=== PATIENT | female | born 1935 | race Hispanic/Latino ===

== ENCOUNTER 2017-03-01 10:51 | Inpatient (IN) | payer MEDICARE ==
[2017-03-01] MEDS ORDERED: NACL 0.9% 1000 ML 1,000 ML IV ONE (11:44)
--- NOTE | 2017-03-01 12:34 | XRay Report ---
AP CHEST: HISTORY: Hypertension Right venous catheter has been removed since 11/08/14. There is mild bilateral perihilar prominence. This appears to represent chronic interstitial changes. No consolidation, pleural effusion or pneumothorax. Normal heart and mediastinal structures. IMPRESSION: No acute process. Mild chronic interstitial changes.
--- NOTE | 2017-03-01 12:35 | Cat Scan Report ---
CT HEAD WITHOUT CONTRAST: HISTORY: Altered mental status. TECHNIQUE: Sequential CT images without contrast. FINDINGS: Non-contrast CT of the head is submitted demonstrating central and cortical atrophy. There are low density changes in the periventricular white matter. Chronic lacunar infarcts in both basal ganglia are unchanged since 08/03/16. There is no intracranial hemorrhage or mass effect. There is no shift of the midline. Basilar cisterns are patent. The included portions of the paranasal sinuses and mastoid air cells are clear. IMPRESSION: Senescent changes as noted. No acute intracranial process.
[2017-03-01 12:49] LABS: Alanine Aminotransferase 13 units/L (7-56); Albumin 3.4 g/dL (3.9-5); Alkaline Phosphatase 110 units/L (35-129); Anion Gap 19 mmol/L; BUN/Creatinine Ratio 25.38; Basophils % (Auto) 0.5 % (0.0-1.8); Bilirubin,Total < 0.20 mg/dL (0.1-1.2); Blood Urea Nitrogen 33 mg/dL (7-17); Calcium 9.3 mg/dL (8.4-10.2); Carbon Dioxide 22 mmol/L (22-30); Chloride 98.7 mmol/L (98-107); Eosinophils % (Auto) 4.1 % (0.0-4.3); Glucose 126 mg/dL (65-100); Hemoglobin 11.3 gm/dl (10.1-14.3); Mean Corpuscular HGB Conc 33 % (30-34); Mean Corpuscular Hemoglobin 30 pg (28-32); Mean Corpuscular Volume 90 fl (79-97); Platelet Count 345 K/mm3 (140-440); Potassium 3.9 mmol/L (3.6-5.0); Red Blood Count 3.78 M/mm3 (3.65-5.03); Red Cell Distribution Width 14.4 % (13.2-15.2); Sodium 136 mmol/L (137-145); Total Protein 6.7 g/dL (6.3-8.2)
--- NOTE | 2017-03-01 13:54 | Emergency Department Report ---
ED Altered Mental Status HPI - General Chief Complaint: Altered Mental Status Stated Complaint: AMS Time Seen by Provider: 03/01/17 11:37 Source: EMS Mode of arrival: Stretcher Limitations: Physical Limitation - History of Present Illness Initial Comments: The patient is transported from the [facility] for evaluation of altered mental status. As far as I can tell there is no reported fever. This appears to be a failure to thrive situation where the patient stopped taking by mouth. The patient herself is able to respond reasonably well although she is lethargic. She no she is in the hospital. She can tell me that she is having no nausea vomiting diarrhea or difficulty in breathing headache or chest or abdominal pain. She states that she is unable to eat and drink and does feel weak. MD Complaint: altered mental status, decreased responsiveness Severity: moderate Context: other ([facility] resident poor by mouth intake) Associated Symptoms: denies other symptoms - Related Data Home Medications Medication Instructions Recorded Confirmed Last Taken Amiodarone HCl [Amiodarone 100 MG 200 mg PO BID 11/06/14 11/06/14 11/06/14 TAB] Aspirin [Aspirin BABY CHEW TAB] 81 mg PO QDAY 11/06/14 11/06/14 11/06/14 Calcium Carbonate [Calcium] 600 mg PO DAILY 11/06/14 11/06/14 11/06/14 Citalopram Hydrobromide [celeXA] 20 mg PO DAILY 11/06/14 11/06/14 11/06/14 Ferrous Sulfate [Feosol 325 MG tab] 325 mg PO ONCE 11/06/14 11/06/14 11/06/14 Gabapentin [Neurontin] 400 mg PO BID 11/06/14 11/06/14 11/06/14 Multivitamin [Multi-Vitamin Daily] 1 tab PO DAILY 11/06/14 11/06/14 11/06/14 Pravastatin Sodium [Pravastatin] 20 mg PO QHS 11/06/14 11/06/14 11/05/14 cloNIDine [Catapres] 0.1 mg PO TID 11/06/14 11/06/14 11/06/14 Previous Rx's Medication Instructions Recorded Last Taken Type clonazePAM 1 mg PO QDAY PRN #5 tablet 08/03/16 Unknown Rx Allergies Allergy/AdvReac Type Severity Reaction Status Date / Time iodine Allergy Unknown Verified 08/03/16 14:13 NSAIDS (Non-Steroidal Allergy Unknown Verified 08/03/16 14:13 Anti-Inflamma Sulfa (Sulfonamide Allergy Unknown Verified 08/03/16 14:13 Antibiotics) sulfamethoxazole Allergy Unknown Verified 10/29/14 10:19 [From Bactrim] trimethoprim [From Bactrim] Allergy Unknown Verified 10/29/14 10:19 ED Review of Systems ROS: Stated complaint: AMS Other details as noted in HPI Comment: Unobtainable due to pts medical conditions (Limited secondary to patient condition) ED Past Medical Hx - Past Medical History Hx Hypertension: Yes Hx GERD: Yes Hx Psychiatric Treatment: Yes (depression) Hx Dementia: Yes Hx HIV: No Additional medical history: a-fib - Surgical History Additional Surgical History: R hip fx repair in May - Social History Smoking Status: Unknown if ever smoked - Medications Home Medications: Home Medications Medication Instructions Recorded Confirmed Last Taken Type Amiodarone HCl [Amiodarone 100 MG 200 mg PO BID 11/06/14 11/06/14 11/06/14 History TAB] Aspirin [Aspirin BABY CHEW TAB] 81 mg PO QDAY 11/06/14 11/06/14 11/06/14 History Calcium Carbonate [Calcium] 600 mg PO DAILY 11/06/14 11/06/14 11/06/14 History Citalopram Hydrobromide [celeXA] 20 mg PO DAILY 11/06/14 11/06/14 11/06/14 History Ferrous Sulfate [Feosol 325 MG tab] 325 mg PO ONCE 11/06/14 11/06/14 11/06/14 History Gabapentin [Neurontin] 400 mg PO BID 11/06/14 11/06/14 11/06/14 History Multivitamin [Multi-Vitamin Daily] 1 tab PO DAILY 11/06/14 11/06/14 11/06/14 History Pravastatin Sodium [Pravastatin] 20 mg PO QHS 11/06/14 11/06/14 11/05/14 History cloNIDine [Catapres] 0.1 mg PO TID 11/06/14 11/06/14 11/06/14 History clonazePAM 1 mg PO QDAY PRN #5 tablet 08/03/16 Unknown Rx ED Physical Exam - General Limitations: Physical Limitation General appearance: alert, in no apparent distress - Head Head exam: Present: atraumatic, normocephalic - Eye Eye exam: Present: normal appearance, PERRL, EOMI. Absent: scleral icterus - ENT ENT exam: Present: mucous membranes dry - Neck Neck exam: Present: normal inspection. Absent: tenderness, meningismus - Respiratory Respiratory exam: Present: normal lung sounds bilaterally. Absent: respiratory distress - Cardiovascular Cardiovascular Exam: Present: regular rate, normal rhythm. Absent: systolic murmur, diastolic murmur, rubs, gallop - GI/Abdominal GI/Abdominal exam: Present: soft, normal bowel sounds. Absent: distended, tenderness, guarding, rebound, rigid - Extremities Exam Extremities exam: Present: normal inspection - Back Exam Back exam: Present: normal inspection - Neurological Exam Neurological exam: Present: altered, CN II-XII intact, other (no apparent focal deficit) - Psychiatric Psychiatric exam: Present: normal mood, flat affect - Skin Skin exam: Present: warm, dry, intact, normal color. Absent: rash - Assessment Assessment Interval: Baseline - Level of Consciousness 1a. Level of Consciousness: not alert, arousable (Stroke is not suspected.) - LOC Questions 1b. LOC Questions: answers correctly - LOC Command 1c. LOC Commands: performs tasks correctly - Best Gaze 2. Best Gaze: normal - Visual 3. Visual: no visual loss - Facial Palsy 4. Facial Palsy: normal symmetrical movement - Motor Arm 5b. Motor Arm Right: no drift 5a. Motor Arm Left: no drift - Motor Leg 6a. Motor Leg Left: no drift 6b. Motor Leg Right: no drift - Limb Ataxia 7. Limb Ataxia: absent - Sensory 8. Sensory: normal - Best Language 9. Best Language: no aphasia - Dysarthria 10. Dysarthria: normal - Extinction and Inattention 11. Extinction/Inattention: no abnormality - Scoring Total Score: 1 Stroke Severity: Minor Stroke ED Course Vital Signs 03/01/17 03/01/17 03/01/17 11:08 11:16 11:30 Temperature 98.0 F Pulse Rate 66 60 Respiratory 16 16 Rate Blood Pressure 104/66 Blood Pressure 104/44 [Right] O2 Sat by Pulse 97 96 96 Oximetry - Reevaluation(s) Reevaluation #1: Patient was started on IV fluids. She was given ceftriaxone empirically for antibiotic coverage. A urinalysis is Pending. EKG is Pending. Chest x-ray showed chronic interstitial disease but otherwise no acute process CT the head showed no acute intracranial abnormality. Patiently referred to the hospital service further care and evaluation. 03/01/17 14:03 Reevaluation #2: CK and troponin are still pending. Lab has been notified. 03/01/17 14:12 - Lab Data Result diagrams: 03/01/17 12:13 03/01/17 12:13 Lab Results 03/01/17 03/01/17 03/01/17 Range/Units 11:44 12:13 12:13 WBC 8.0 (4.5-11.0) K/mm3 RBC 3.78 (3.65-5.03) M/mm3 Hgb 11.3 (10.1-14.3) gm/dl Hct 34.0 (30.3-42.9) % MCV 90 (79-97) fl MCH 30 (28-32) pg MCHC 33 (30-34) % RDW 14.4 (13.2-15.2) % Plt Count 345 (140-440) K/mm3 Lymph % (Auto) 19.0 (13.4-35.0) % Liberty % (Auto) 7.2 (0.0-7.3) % Eos % (Auto) 4.1 (0.0-4.3) % Baso % (Auto) 0.5 (0.0-1.8) % Lymph # 1.5 (1.2-5.4) K/mm3 Liberty # 0.6 (0.0-0.8) K/mm3 Eos # 0.3 (0.0-0.4) K/mm3 Baso # 0.0 (0.0-0.1) K/mm3 Seg Neutrophils % 69.2 (40.0-70.0) % Seg Neutrophils # 5.5 (1.8-7.7) K/mm3 Sodium 136 L (137-145) mmol/L Potassium 3.9 (3.6-5.0) mmol/L Chloride 98.7 (98-107) mmol/L Carbon Dioxide 22 (22-30) mmol/L Anion Gap 19 mmol/L BUN 33 H (7-17) mg/dL Creatinine 1.3 H (0.7-1.2) mg/dL Estimated GFR 39 ml/min BUN/Creatinine Ratio 25.38 % Glucose 126 H (65-100) mg/dL Lactic Acid (0.7-2.0) mmol/L Calcium 9.3 (8.4-10.2) mg/dL Magnesium 2.00 (1.7-2.3) mg/dL Total Bilirubin < 0.20 (0.1-1.2) mg/dL AST 19 (5-40) units/L ALT 13 (7-56) units/L Alkaline Phosphatase 110 (35-129) units/L Total Creatine Kinase 27 L (30-135) units/L CK-MB (CK-2) 1.5 (0.0-4.0) ng/mL CK-MB (CK-2) Rel Index 5.5 H (0-4) Troponin T < 0.010 (0.00-0.029) ng/mL Total Protein 6.7 (6.3-8.2) g/dL Albumin 3.4 L (3.9-5) g/dL Albumin/Globulin Ratio 1.0 % TSH (0.270-4.200) mlU/mL Urine Color (Yellow) Urine Turbidity (Clear) Urine pH (5.0-7.0) Ur Specific Convoy (1.003-1.030) Urine Protein (Negative) mg/dL Urine Glucose (UA) (Negative) mg/dL Urine Ketones (Negative) mg/dL Urine Blood (Negative) Urine Nitrite (Negative) Urine Bilirubin (Negative) Urine Urobilinogen (<2.0) mg/dL Ur Leukocyte Esterase (Negative) Urine WBC (Auto) (0.0-6.0) /HPF Urine RBC (Auto) (0.0-6.0) /HPF U Epithel Cells (Auto) (0-13.0) /HPF Hyaline Casts /LPF Urine Mucus /HPF Salicylates (2.8-20.0) mg/dL Urine Opiates Screen Urine Methadone Screen Acetaminophen (10.0-30.0) ug/mL Ur Barbiturates Screen Ur Phencyclidine Scrn Ur Amphetamines Screen U Benzodiazepines Scrn Urine Cocaine Screen U Marijuana (THC) Screen Drugs of Abuse Note Plasma/Serum Alcohol (0-0.07) gm% 03/01/17 03/01/17 03/01/17 Range/Units 12:13 12:13 12:13 WBC (4.5-11.0) K/mm3 RBC (3.65-5.03) M/mm3 Hgb (10.1-14.3) gm/dl Hct (30.3-42.9) % MCV (79-97) fl MCH (28-32) pg MCHC (30-34) % RDW (13.2-15.2) % Plt Count (140-440) K/mm3 Lymph % (Auto) (13.4-35.0) % Liberty % (Auto) (0.0-7.3) % Eos % (Auto) (0.0-4.3) % Baso % (Auto) (0.0-1.8) % Lymph # (1.2-5.4) K/mm3 Liberty # (0.0-0.8) K/mm3 Eos # (0.0-0.4) K/mm3 Baso # (0.0-0.1) K/mm3 Seg Neutrophils % (40.0-70.0) % Seg Neutrophils # (1.8-7.7) K/mm3 Sodium (137-145) mmol/L Potassium (3.6-5.0) mmol/L Chloride (98-107) mmol/L Carbon Dioxide (22-30) mmol/L Anion Gap mmol/L BUN (7-17) mg/dL Creatinine (0.7-1.2) mg/dL Estimated GFR ml/min BUN/Creatinine Ratio % Glucose (65-100) mg/dL Lactic Acid 1.3 (0.7-2.0) mmol/L Calcium (8.4-10.2) mg/dL Magnesium (1.7-2.3) mg/dL Total Bilirubin (0.1-1.2) mg/dL AST (5-40) units/L ALT (7-56) units/L Alkaline Phosphatase (35-129) units/L Total Creatine Kinase (30-135) units/L CK-MB (CK-2) (0.0-4.0) ng/mL CK-MB (CK-2) Rel Index (0-4) Troponin T (0.00-0.029) ng/mL Total Protein (6.3-8.2) g/dL Albumin (3.9-5) g/dL Albumin/Globulin Ratio % TSH 1.660 (0.270-4.200) mlU/mL Urine Color (Yellow) Urine Turbidity (Clear) Urine pH (5.0-7.0) Ur Specific Convoy (1.003-1.030) Urine Protein (Negative) mg/dL Urine Glucose (UA) (Negative) mg/dL Urine Ketones (Negative) mg/dL Urine Blood (Negative) Urine Nitrite (Negative) Urine Bilirubin (Negative) Urine Urobilinogen (<2.0) mg/dL Ur Leukocyte Esterase (Negative) Urine WBC (Auto) (0.0-6.0) /HPF Urine RBC (Auto) (0.0-6.0) /HPF U Epithel Cells (Auto) (0-13.0) /HPF Hyaline Casts /LPF Urine Mucus /HPF Salicylates < 0.3 L (2.8-20.0) mg/dL Urine Opiates Screen Urine Methadone Screen Acetaminophen (10.0-30.0) ug/mL Ur Barbiturates Screen Ur Phencyclidine Scrn Ur Amphetamines Screen U Benzodiazepines Scrn Urine Cocaine Screen U Marijuana (THC) Screen Drugs of Abuse Note Plasma/Serum Alcohol (0-0.07) gm% 03/01/17 03/01/17 03/01/17 Range/Units 12:13 12:13 14:12 WBC (4.5-11.0) K/mm3 RBC (3.65-5.03) M/mm3 Hgb (10.1-14.3) gm/dl Hct (30.3-42.9) % MCV (79-97) fl MCH (28-32) pg MCHC (30-34) % RDW (13.2-15.2) % Plt Count (140-440) K/mm3 Lymph % (Auto) (13.4-35.0) % Liberty % (Auto) (0.0-7.3) % Eos % (Auto) (0.0-4.3) % Baso % (Auto) (0.0-1.8) % Lymph # (1.2-5.4) K/mm3 Liberty # (0.0-0.8) K/mm3 Eos # (0.0-0.4) K/mm3 Baso # (0.0-0.1) K/mm3 Seg Neutrophils % (40.0-70.0) % Seg Neutrophils # (1.8-7.7) K/mm3 Sodium (137-145) mmol/L Potassium (3.6-5.0) mmol/L Chloride (98-107) mmol/L Carbon Dioxide (22-30) mmol/L Anion Gap mmol/L BUN (7-17) mg/dL Creatinine (0.7-1.2) mg/dL Estimated GFR ml/min BUN/Creatinine Ratio % Glucose (65-100) mg/dL Lactic Acid 1.1 (0.7-2.0) mmol/L Calcium (8.4-10.2) mg/dL Magnesium (1.7-2.3) mg/dL Total Bilirubin (0.1-1.2) mg/dL AST (5-40) units/L ALT (7-56) units/L Alkaline Phosphatase (35-129) units/L Total Creatine Kinase (30-135) units/L CK-MB (CK-2) (0.0-4.0) ng/mL CK-MB (CK-2) Rel Index (0-4) Troponin T (0.00-0.029) ng/mL Total Protein (6.3-8.2) g/dL Albumin (3.9-5) g/dL Albumin/Globulin Ratio % TSH (0.270-4.200) mlU/mL Urine Color (Yellow) Urine Turbidity (Clear) Urine pH (5.0-7.0) Ur Specific Convoy (1.003-1.030) Urine Protein (Negative) mg/dL Urine Glucose (UA) (Negative) mg/dL Urine Ketones (Negative) mg/dL Urine Blood (Negative) Urine Nitrite (Negative) Urine Bilirubin (Negative) Urine Urobilinogen (<2.0) mg/dL Ur Leukocyte Esterase (Negative) Urine WBC (Auto) (0.0-6.0) /HPF Urine RBC (Auto) (0.0-6.0) /HPF U Epithel Cells (Auto) (0-13.0) /HPF Hyaline Casts /LPF Urine Mucus /HPF Salicylates (2.8-20.0) mg/dL Urine Opiates Screen Urine Methadone Screen Acetaminophen < 15.0 (10.0-30.0) ug/mL Ur Barbiturates Screen Ur Phencyclidine Scrn Ur Amphetamines Screen U Benzodiazepines Scrn Urine Cocaine Screen U Marijuana (THC) Screen Drugs of Abuse Note Plasma/Serum Alcohol < 0.01 (0-0.07) gm% 03/01/17 03/01/17 Range/Units 15:41 15:41 WBC (4.5-11.0) K/mm3 RBC (3.65-5.03) M/mm3 Hgb (10.1-14.3) gm/dl Hct (30.3-42.9) % MCV (79-97) fl MCH (28-32) pg MCHC (30-34) % RDW (13.2-15.2) % Plt Count (140-440) K/mm3 Lymph % (Auto) (13.4-35.0) % Liberty % (Auto) (0.0-7.3) % Eos % (Auto) (0.0-4.3) % Baso % (Auto) (0.0-1.8) % Lymph # (1.2-5.4) K/mm3 Liberty # (0.0-0.8) K/mm3 Eos # (0.0-0.4) K/mm3 Baso # (0.0-0.1) K/mm3 Seg Neutrophils % (40.0-70.0) % Seg Neutrophils # (1.8-7.7) K/mm3 Sodium (137-145) mmol/L Potassium (3.6-5.0) mmol/L Chloride (98-107) mmol/L Carbon Dioxide (22-30) mmol/L Anion Gap mmol/L BUN (7-17) mg/dL Creatinine (0.7-1.2) mg/dL Estimated GFR ml/min BUN/Creatinine Ratio % Glucose (65-100) mg/dL Lactic Acid (0.7-2.0) mmol/L Calcium (8.4-10.2) mg/dL Magnesium (1.7-2.3) mg/dL Total Bilirubin (0.1-1.2) mg/dL AST (5-40) units/L ALT (7-56) units/L Alkaline Phosphatase (35-129) units/L Total Creatine Kinase (30-135) units/L CK-MB (CK-2) (0.0-4.0) ng/mL CK-MB (CK-2) Rel Index (0-4) Troponin T (0.00-0.029) ng/mL Total Protein (6.3-8.2) g/dL Albumin (3.9-5) g/dL Albumin/Globulin Ratio % TSH (0.270-4.200) mlU/mL Urine Color Yellow (Yellow) Urine Turbidity Clear (Clear) Urine pH 5.0 (5.0-7.0) Ur Specific Convoy 1.018 (1.003-1.030) Urine Protein 100 mg/dl (Negative) mg/dL Urine Glucose (UA) Neg (Negative) mg/dL Urine Ketones Neg (Negative) mg/dL Urine Blood Neg (Negative) Urine Nitrite Neg (Negative) Urine Bilirubin Neg (Negative) Urine Urobilinogen < 2.0 (<2.0) mg/dL Ur Leukocyte Esterase Neg (Negative) Urine WBC (Auto) 2.0 (0.0-6.0) /HPF Urine RBC (Auto) 2.0 (0.0-6.0) /HPF U Epithel Cells (Auto) 2.0 (0-13.0) /HPF Hyaline Casts 1 /LPF Urine Mucus 2+ /HPF Salicylates (2.8-20.0) mg/dL Urine Opiates Screen Presumptive negative Urine Methadone Screen Presumptive negative Acetaminophen (10.0-30.0) ug/mL Ur Barbiturates Screen Presumptive negative Ur Phencyclidine Scrn Presumptive negative Ur Amphetamines Screen Presumptive negative U Benzodiazepines Scrn Presumptive negative Urine Cocaine Screen Presumptive negative U Marijuana (THC) Screen Presumptive negative Drugs of Abuse Note Disclamer Plasma/Serum Alcohol (0-0.07) gm% Laboratory Results - last 24 hr 03/01/17 03/01/17 03/01/17 12:13 12:13 12:13 WBC 8.0 RBC 3.78 Hgb 11.3 Hct 34.0 MCV 90 MCH 30 MCHC 33 RDW 14.4 Plt Count 345 Lymph % (Auto) 19.0 Liberty % (Auto) 7.2 Eos % (Auto) 4.1 Baso % (Auto) 0.5 Lymph # 1.5 Liberty # 0.6 Eos # 0.3 Baso # 0.0 Seg Neutrophils % 69.2 Seg Neutrophils # 5.5 Sodium 136 L Potassium 3.9 Chloride 98.7 Carbon Dioxide 22 Anion Gap 19 BUN 33 H Creatinine 1.3 H Estimated GFR 39 BUN/Creatinine Ratio 25.38 Glucose 126 H Lactic Acid 1.3 Calcium 9.3 Magnesium 2.00 Total Bilirubin < 0.20 AST 19 ALT 13 Alkaline Phosphatase 110 Total Protein 6.7 Albumin 3.4 L Albumin/Globulin Ratio 1.0 TSH Acetaminophen Plasma/Serum Alcohol 03/01/17 03/01/17 03/01/17 12:13 12:13 12:13 WBC RBC Hgb Hct MCV MCH MCHC RDW Plt Count Lymph % (Auto) Liberty % (Auto) Eos % (Auto) Baso % (Auto) Lymph # Liberty # Eos # Baso # Seg Neutrophils % Seg Neutrophils # Sodium Potassium Chloride Carbon Dioxide Anion Gap BUN Creatinine Estimated GFR BUN/Creatinine Ratio Glucose Lactic Acid Calcium Magnesium Total Bilirubin AST ALT Alkaline Phosphatase Total Protein Albumin Albumin/Globulin Ratio TSH 1.660 Acetaminophen < 15.0 Plasma/Serum Alcohol < 0.01 - EKG Data -: EKG Interpreted by Me EKG shows normal: sinus rhythm Rate: normal Interpretation: other (left bundle-branch block) - Radiology Data Radiology results: report reviewed interpreted by me: Chest x-ray shows chronic interstitial change. CT the head process. Critical care attestation.: If time is entered above; I have spent that time in minutes in the direct care of this critically ill patient, excluding procedure time. ED Disposition Clinical Impression: Prerenal azotemia, Left bundle branch block Altered mental status Qualifiers: Altered mental status type: somnolence Qualified Code(s): R40.0 - Somnolence Disposition: OP ADMITTED IP TO THIS HOSP Is pt being admited?: Yes Does the pt Need Aspirin: Yes Condition: Stable Referrals: PRIMARY CARE, [Primary Care Provider] - 3-5 Days Time of Disposition: 14:06
[2017-03-01] MEDS ORDERED: ROCEPHIN/NS 1 GM/50 ML 1 GM/50 ML BAG IV ONE (13:59)
--- NOTE | 2017-03-01 14:14 | History and Physical Report ---
History of Present Illness Chief complaint: confusion History of present illness: 81 YO Female NHR with HTN, GERD, A Fib, Depression, Dementia presents to ED for evaluation. Pt is unable to provide history. Pt history is taken from SNF staff , and ED staff. As per SNF staff, Pt has experienced decreased intake, and decreased level of consciousness. No reports of fever, chills, CP, Palpitations , NVD, Syncope, recent ill contacts. Past History Past Medical History: atrial fib, GERD, hypertension Past Surgical History: Other (Hip fracture repair) Social history: single. denies: smoking, alcohol abuse, prescription drug abuse Family history: no significant family history, other (reviewed) Medications and Allergies Allergies Allergy/AdvReac Type Severity Reaction Status Date / Time iodine Allergy Unknown Verified 08/03/16 14:13 NSAIDS (Non-Steroidal Allergy Unknown Verified 08/03/16 14:13 Anti-Inflamma Sulfa (Sulfonamide Allergy Unknown Verified 08/03/16 14:13 Antibiotics) sulfamethoxazole Allergy Unknown Verified 10/29/14 10:19 [From Bactrim] trimethoprim [From Bactrim] Allergy Unknown Verified 10/29/14 10:19 Home Medications Medication Instructions Recorded Confirmed Last Taken Type Amiodarone HCl [Amiodarone 100 MG 200 mg PO BID 11/06/14 11/06/14 11/06/14 History TAB] Aspirin [Aspirin BABY CHEW TAB] 81 mg PO QDAY 11/06/14 11/06/14 11/06/14 History Calcium Carbonate [Calcium] 600 mg PO DAILY 11/06/14 11/06/14 11/06/14 History Citalopram Hydrobromide [celeXA] 20 mg PO DAILY 11/06/14 11/06/14 11/06/14 History Ferrous Sulfate [Feosol 325 MG tab] 325 mg PO ONCE 11/06/14 11/06/14 11/06/14 History Gabapentin [Neurontin] 400 mg PO BID 11/06/14 11/06/14 11/06/14 History Multivitamin [Multi-Vitamin Daily] 1 tab PO DAILY 11/06/14 11/06/14 11/06/14 History Pravastatin Sodium [Pravastatin] 20 mg PO QHS 11/06/14 11/06/14 11/05/14 History cloNIDine [Catapres] 0.1 mg PO TID 11/06/14 11/06/14 11/06/14 History clonazePAM 1 mg PO QDAY PRN #5 tablet 08/03/16 Unknown Rx Active Meds: Active Medications Sodium Chloride (Nacl 0.9% 1000 Ml) 1,000 mls @ 250 mls/hr IV ONCE ONE Stop: 03/01/17 15:43 Ceftriaxone Sodium (Rocephin/Ns 1 Gm/50 Ml) 1 gm in 50 mls @ 100 mls/hr IV ONCE ONE PRN Reason: Protocol Stop: 03/01/17 14:28 Review of Systems ROS unobtainable: due to mental status Exam - Constitutional Vitals: Temp Pulse Resp BP Pulse Ox 98.0 F 60 16 104/44 96 03/01/17 11:30 03/01/17 11:30 03/01/17 11:30 03/01/17 11:30 03/01/17 11:30 General appearance: Present: no acute distress - EENT Eyes: Present: PERRL ENT: hearing intact, clear oral mucosa - Neck Neck: Present: supple - Respiratory Respiratory: bilateral: diminished - Cardiovascular Rhythm: irregularly irregular - Extremities Extremities: pulses symmetrical, No edema - Abdominal General gastrointestinal: Present: soft, non-tender, non-distended, normal bowel sounds Female genitourinary: Present: normal - Integumentary Integumentary: Present: clear, dry, decreased turgor - Musculoskeletal Musculoskeletal: generalized weakness - Psychiatric Psychiatric: no intact judgment & insight, no memory intact - Neurologic Neurologic: moves all extremities, no gait normal Results - Labs CBC & Chem 7: 03/01/17 12:13 03/01/17 12:13 Labs: Abnormal lab results 03/01/17 Range/Units 12:13 Sodium 136 L (137-145) mmol/L BUN 33 H (7-17) mg/dL Creatinine 1.3 H (0.7-1.2) mg/dL Glucose 126 H (65-100) mg/dL Albumin 3.4 L (3.9-5) g/dL Assessment and Plan - Patient Problems (1) ARF (acute renal failure) with tubular necrosis Current Visit: Yes Status: Acute Plan to address problem: IVF, supportive care, monitor uop q shift (2) Hyponatremia syndrome Current Visit: Yes Status: Acute Plan to address problem: IVF, supportive care, repeat bmp, (3) Encephalopathy acute Current Visit: Yes Status: Acute Plan to address problem: supportive care, bed alarm, fall precautions, (4) Debility Current Visit: Yes Status: Acute Plan to address problem: bed alarm, fall precautions, (5) Atrial fibrillation Current Visit: Yes Status: Acute Qualifiers: Atrial fibrillation type: A Plan to address problem: continue current care, resume home medication. (6) DVT prophylaxis Current Visit: Yes Status: Acute
[2017-03-01] MEDS ORDERED: TYLENOL PO PRN (14:16)
[2017-03-01] MEDS ORDERED: DULCOLAX PR PRN (14:16)
[2017-03-01] MEDS ORDERED: DUONEB 0.5 MG-3 MG/3 ML SOLN IH PRN (14:16)
[2017-03-01] MEDS ORDERED: ZOFRAN IV PRN (14:16)
[2017-03-01] MEDS ORDERED: MILK OF MAGNESIA PO PRN (14:16)
[2017-03-01 14:49] LABS: Creatine Kinase MB 1.5 ng/mL (0.0-4.0)
[2017-03-01 14:50] LABS: Creatine Kinase 27 units/L (30-135)
[2017-03-01] MEDS ORDERED: FEOSOL PO SCH (15:00)
[2017-03-01 15:49] LABS: Urine Drugs of Abuse Note Disclamer
[2017-03-01 16:17] LABS: Bilirubin,Urine NEG (Negative); Blood,Urine NEG (Negative); Ketones,Urine NEG (Negative); Leukocyte Esterase,Urine NEG (Negative); Mucus,Urine 2+ /HPF; Nitrite,Urine NEG (Negative); Urobilinogen,Urine < 2.0 mg/dL (<2.0)
--- NOTE | 2017-03-01 16:30 | Admit Criteria Form ---
Admission Criteria Documentation: MENTAL STATUS CHANGE Clinical Indications for Inpatient Care (Place 'X' for any and all applicable criteria): Ongoing inpatient care may be needed for 1 or more of the following(1)(2)(3)(5)( 6): [ X]I. Suspected serious etiology (eg, medical disorder, SQUAD BOSS event) of altered mental status [ ]II. Danger to self or others not manageable at lower level of care [ ]III. Grave disability (eg, inability to perform self care necessary at lower level of care) [ ]IV. Agitation or inappropriate behavior interfering with care for primary condition (eg, attempting to discontinue lines or drains prematurely, unable to cooperate with respiratory care) [ ]V. Delirium [A] [D][E] as described by 1 or more of the following(26): [ ]a) Delirium due to alcohol or sedative [F] withdrawal [ ]b) Delirium of uncertain etiology that has not responded to appropriate empiric treatment [ ]c) Delirium that prevents performance of a life-sustaining function (eg, feeding or hydrating oneself) [ ]. General contraindications and/or Inappropriate clinical situations for Observational Care in patients with Mental Status Change, when ANY ONE of the following is required: [ ]a) Prediction of prolongation of LOS based on ANY ONE of the following may be considered as a contraindication for observational care 2, 3, 4, 5, 6, 7, 8, 9, 10, 11 [ ]i) Age > 65 yrs. [ ]ii) Patient arriving by ambulance [ ]iii) Patient with high acuity [ ]iv) Patient requiring vital sign monitoring [ ]v) Patient on IV medication [ ]b) Systolic blood pressures greater than or equal to 180mmHg 3, 12 [ ]c) Patient with altered mental status including delirium and other alteration of consciousness, (3) [ ]d) Patient whose discharge disposition will be to a assisted home or rehabilitation home should not be managed in Emergency Department Observation Unit. CMS rule requires 3 days hospital stay before such placement.3,13 [ ]e) Patient with failure to thrive due to broad array of etiologies 3,16,17 [ ]f) Inability to ambulate 3,14 Extended stay beyond goal length of stay for the primary condition may be needed until ALL of the following are present(3)(5): [ ]a) Underlying medical etiology of mental status change is absent, or has been established and adequately treated [ ]b) Danger to self or others is absent or manageable at lower level of care. [ ]c) Behavior crisis management, including physical or chemical restraints, is not required or available at lower level of car [ ]d) Substance or alcohol withdrawal is absent or manageable at lower level of care. [ ]e) Behavioral symptoms (eg, agitation, somnolence, inappropriate behavior) are absent, or are manageable at lower level of care. The original [facility] content created by [facility] has been revised. The portions of the content which have been revised are identified through the use of italic text or in bold, and [facility] has neither reviewed nor approved the modified material. All other unmodified content is copyright [facility] [employer]. Please see references footnoted in the original [facility] edition 2016 Admission Criteria Met: Yes
[2017-03-01] MEDS: CATAPRES PO SCH (20:00)
[2017-03-01] MEDS: CORDARONE PO SCH (22:00)
[2017-03-01] MEDS: NEURONTIN PO SCH (22:00)
[2017-03-01] MEDS ORDERED: NON-FORMULARY (Pravastatin Sodium [Pravastatin] 20 MG) PO SCH (22:00)
[2017-03-01] MEDS: ZOCOR PO SCH (22:00)
[2017-03-02] MEDS: NACL 0.45% 1000 ML 1,000 ML IV SCH (01:14)
[2017-03-02] MEDS: CATAPRES PO SCH ×3 (08:32→21:48)
[2017-03-02] MEDS: celeXA PO SCH (10:00)
[2017-03-02] MEDS: NEURONTIN PO SCH ×2 (10:00→21:47)
[2017-03-02] MEDS ORDERED: NON-FORMULARY (Multivitamin [Multi-Vitamin Daily] 1 TAB) PO SCH (10:00)
[2017-03-02] MEDS: OSCAL PO SCH (10:00)
[2017-03-02] MEDS: THERAGRAN-M Tab PO SCH (10:00)
[2017-03-02] MEDS: BABY ASPIRIN PO SCH (10:00)
[2017-03-02] MEDS: CORDARONE PO SCH ×2 (10:00→21:48)
--- NOTE | 2017-03-02 17:09 | Progress Note ---
Assessment and Plan Assessment and plan: 1. Acute toxic metabolic encephalopathy Likely secondary to electrolyte abnormalities/uremia superimposed on dementia Infection ruled out Treating underlying conditions 2. Acute renal failure Likely secondary to dehydration with subsequent vasomotor nephropathy IV fluids Monitor BUN/creatinine and electrolytes 3. Hyponatremia Mild, monitor 4. Atrial fibrillation Rate controlled with amiodarone Not on anticoagulation Likely secondary to mental impairment and risk of falls 5. Hypertension On clonidine Monitor BP and adjust if needed 6. Hyperlipidemia On statin 7. Depression/dementia Continue Celexa, Klonopin Supportive care 8. Malnutrition Likely secondary to dementia and poor intake 9. DVT prophylaxis History Interval history: awake, alert, talkative, but confused, not oriented Hospitalist Physical - Constitutional Vitals: Temp Pulse Resp BP Pulse Ox 97.8 F 80 20 142/70 97 03/02/17 10:00 03/02/17 14:58 03/02/17 10:00 03/02/17 14:58 03/02/17 10:00 General appearance: Present: no acute distress, well-nourished - EENT Eyes: Present: PERRL, EOM intact. Absent: scleral icterus, conjunctival injection - Neck Neck: Present: supple, normal ROM. Absent: masses or JVD - Respiratory Respiratory effort: normal Respiratory: bilateral: CTA, negative: rales, rhonchi, wheezing - Cardiovascular Rhythm: irregularly irregular Heart Sounds: Present: S1 & S2. Absent: systolic murmur - Extremities Extremities: no ischemia Results - Labs CBC & Chem 7: 03/01/17 12:13 03/01/17 12:13 Labs: Laboratory Last Values WBC 8.0 K/mm3 (4.5-11.0) 03/01/17 12:13 RBC 3.78 M/mm3 (3.65-5.03) 03/01/17 12:13 Hgb 11.3 gm/dl (10.1-14.3) 03/01/17 12:13 Hct 34.0 % (30.3-42.9) 03/01/17 12:13 MCV 90 fl (79-97) 03/01/17 12:13 MCH 30 pg (28-32) 03/01/17 12:13 MCHC 33 % (30-34) 03/01/17 12:13 RDW 14.4 % (13.2-15.2) 03/01/17 12:13 Plt Count 345 K/mm3 (140-440) 03/01/17 12:13 Lymph % (Auto) 19.0 % (13.4-35.0) 03/01/17 12:13 [place] % (Auto) 7.2 % (0.0-7.3) 03/01/17 12:13 Eos % (Auto) 4.1 % (0.0-4.3) 03/01/17 12:13 Baso % (Auto) 0.5 % (0.0-1.8) 03/01/17 12:13 Lymph # 1.5 K/mm3 (1.2-5.4) 03/01/17 12:13 [place] # 0.6 K/mm3 (0.0-0.8) 03/01/17 12:13 Eos # 0.3 K/mm3 (0.0-0.4) 03/01/17 12:13 Baso # 0.0 K/mm3 (0.0-0.1) 03/01/17 12:13 Seg Neutrophils % 69.2 % (40.0-70.0) 03/01/17 12:13 Seg Neutrophils # 5.5 K/mm3 (1.8-7.7) 03/01/17 12:13 Sodium 136 mmol/L (137-145) L 03/01/17 12:13 Potassium 3.9 mmol/L (3.6-5.0) 03/01/17 12:13 Chloride 98.7 mmol/L (98-107) 03/01/17 12:13 Carbon Dioxide 22 mmol/L (22-30) 03/01/17 12:13 Anion Gap 19 mmol/L 03/01/17 12:13 BUN 33 mg/dL (7-17) H 03/01/17 12:13 Creatinine 1.3 mg/dL (0.7-1.2) H 03/01/17 12:13 Estimated GFR 39 ml/min 03/01/17 12:13 BUN/Creatinine Ratio 25.38 % 03/01/17 12:13 Glucose 126 mg/dL (65-100) H 03/01/17 12:13 Lactic Acid 1.1 mmol/L (0.7-2.0) 03/01/17 14:12 Calcium 9.3 mg/dL (8.4-10.2) 03/01/17 12:13 Magnesium 2.00 mg/dL (1.7-2.3) 03/01/17 12:13 Total Bilirubin < 0.20 mg/dL (0.1-1.2) 03/01/17 12:13 AST 19 units/L (5-40) 03/01/17 12:13 ALT 13 units/L (7-56) 03/01/17 12:13 Alkaline Phosphatase 110 units/L (35-129) 03/01/17 12:13 Total Creatine Kinase 27 units/L (30-135) L 03/01/17 11:44 CK-MB (CK-2) 1.5 ng/mL (0.0-4.0) 03/01/17 11:44 CK-MB (CK-2) Rel Index 5.5 (0-4) H 03/01/17 11:44 Troponin T < 0.010 ng/mL (0.00-0.029) 03/01/17 11:44 Total Protein 6.7 g/dL (6.3-8.2) 03/01/17 12:13 Albumin 3.4 g/dL (3.9-5) L 03/01/17 12:13 Albumin/Globulin Ratio 1.0 % 03/01/17 12:13 TSH 1.660 mlU/mL (0.270-4.200) 03/01/17 12:13 Urine Color Yellow (Yellow) 03/01/17 15:41 Urine Turbidity Clear (Clear) 03/01/17 15:41 Urine pH 5.0 (5.0-7.0) 03/01/17 15:41 Ur Specific [place] 1.018 (1.003-1.030) 03/01/17 15:41 Urine Protein 100 mg/dl mg/dL (Negative) 03/01/17 15:41 Urine Glucose (UA) Neg mg/dL (Negative) 03/01/17 15:41 Urine Ketones Neg mg/dL (Negative) 03/01/17 15:41 Urine Blood Neg (Negative) 03/01/17 15:41 Urine Nitrite Neg (Negative) 03/01/17 15:41 Urine Bilirubin Neg (Negative) 03/01/17 15:41 Urine Urobilinogen < 2.0 mg/dL (<2.0) 03/01/17 15:41 Ur Leukocyte Esterase Neg (Negative) 03/01/17 15:41 Urine WBC (Auto) 2.0 /HPF (0.0-6.0) 03/01/17 15:41 Urine RBC (Auto) 2.0 /HPF (0.0-6.0) 03/01/17 15:41 U Epithel Cells (Auto) 2.0 /HPF (0-13.0) 03/01/17 15:41 Hyaline Casts 1 /LPF 03/01/17 15:41 Urine Mucus 2+ /HPF 03/01/17 15:41 Salicylates < 0.3 mg/dL (2.8-20.0) L 03/01/17 12:13 Urine Opiates Screen Presumptive negative 03/01/17 15:41 Urine Methadone Screen Presumptive negative 03/01/17 15:41 Acetaminophen < 15.0 ug/mL (10.0-30.0) 03/01/17 12:13 Ur Barbiturates Screen Presumptive negative 03/01/17 15:41 Ur Phencyclidine Scrn Presumptive negative 03/01/17 15:41 Ur Amphetamines Screen Presumptive negative 03/01/17 15:41 U Benzodiazepines Scrn Presumptive negative 03/01/17 15:41 Urine Cocaine Screen Presumptive negative 03/01/17 15:41 U Marijuana (THC) Screen Presumptive negative 03/01/17 15:41 Drugs of Abuse Note Disclamer 03/01/17 15:41 Plasma/Serum Alcohol < 0.01 gm% (0-0.07) 03/01/17 12:13
[2017-03-02] MEDS: ZOCOR PO SCH (21:47)
[2017-03-03] MEDS: NACL 0.45% 1000 ML 1,000 ML IV SCH (06:43)
[2017-03-03] MEDS: CATAPRES PO SCH ×3 (08:17→20:00)
[2017-03-03] MEDS: celeXA PO SCH (10:09)
[2017-03-03] MEDS: NEURONTIN PO SCH ×2 (10:10→21:54)
[2017-03-03] MEDS: THERAGRAN-M Tab PO SCH (10:10)
[2017-03-03] MEDS: OSCAL PO SCH (10:10)
[2017-03-03] MEDS: CORDARONE PO SCH ×2 (10:10→21:55)
[2017-03-03] MEDS: BABY ASPIRIN PO SCH (10:10)
--- NOTE | 2017-03-03 19:50 | Progress Note ---
Assessment and Plan Assessment and plan: 1. Acute toxic metabolic encephalopathy Likely secondary to electrolyte abnormalities/uremia superimposed on dementia Infection ruled out Treating underlying conditions 2. Acute renal failure Likely secondary to dehydration with subsequent vasomotor nephropathy Receiving IV fluids Monitor BUN/creatinine and electrolytes 3. Hyponatremia Mild, monitor 4. Atrial fibrillation Rate controlled with amiodarone Not on anticoagulation Likely secondary to mental impairment and risk of falls 5. Hypertension BP controlled on clonidine 6. Hyperlipidemia On statin 7. Depression/dementia Continue Celexa, Klonopin Supportive care 8. Malnutrition Likely secondary to dementia and poor intake 9. DVT prophylaxis History Interval history: awake, alert, talkative, but confused, mental status slightly better than yesterday Hospitalist Physical - Constitutional Vitals: Temp Pulse Resp BP Pulse Ox 99.4 F 60 18 133/56 97 03/03/17 10:00 03/03/17 14:11 03/03/17 10:00 03/03/17 14:11 03/03/17 10:00 General appearance: Present: no acute distress - EENT Eyes: Present: PERRL, EOM intact. Absent: scleral icterus, conjunctival injection - Neck Neck: Present: supple. Absent: enlarged thyroid, masses or JVD - Respiratory Respiratory effort: normal Respiratory: bilateral: CTA, negative: rhonchi, wheezing - Cardiovascular Rhythm: regular Heart Sounds: Present: S1 & S2. Absent: systolic murmur - Extremities Extremities: no ischemia - Abdominal General gastrointestinal: soft, non-tender, non-distended, normal bowel sounds - Integumentary Integumentary: Present: warm, dry. Absent: jaundice, rash - Psychiatric Psychiatric: other (confused) - Neurologic Neurologic: CNII-XII intact, no focal deficits Results - Labs CBC & Chem 7: 03/01/17 12:13 03/01/17 12:13 Labs: Laboratory Last Values WBC 8.0 K/mm3 (4.5-11.0) 03/01/17 12:13 RBC 3.78 M/mm3 (3.65-5.03) 03/01/17 12:13 Hgb 11.3 gm/dl (10.1-14.3) 03/01/17 12:13 Hct 34.0 % (30.3-42.9) 03/01/17 12:13 MCV 90 fl (79-97) 03/01/17 12:13 MCH 30 pg (28-32) 03/01/17 12:13 MCHC 33 % (30-34) 03/01/17 12:13 RDW 14.4 % (13.2-15.2) 03/01/17 12:13 Plt Count 345 K/mm3 (140-440) 03/01/17 12:13 Lymph % (Auto) 19.0 % (13.4-35.0) 03/01/17 12:13 [place] % (Auto) 7.2 % (0.0-7.3) 03/01/17 12:13 Eos % (Auto) 4.1 % (0.0-4.3) 03/01/17 12:13 Baso % (Auto) 0.5 % (0.0-1.8) 03/01/17 12:13 Lymph # 1.5 K/mm3 (1.2-5.4) 03/01/17 12:13 [place] # 0.6 K/mm3 (0.0-0.8) 03/01/17 12:13 Eos # 0.3 K/mm3 (0.0-0.4) 03/01/17 12:13 Baso # 0.0 K/mm3 (0.0-0.1) 03/01/17 12:13 Seg Neutrophils % 69.2 % (40.0-70.0) 03/01/17 12:13 Seg Neutrophils # 5.5 K/mm3 (1.8-7.7) 03/01/17 12:13 Sodium 136 mmol/L (137-145) L 03/01/17 12:13 Potassium 3.9 mmol/L (3.6-5.0) 03/01/17 12:13 Chloride 98.7 mmol/L (98-107) 03/01/17 12:13 Carbon Dioxide 22 mmol/L (22-30) 03/01/17 12:13 Anion Gap 19 mmol/L 03/01/17 12:13 BUN 33 mg/dL (7-17) H 03/01/17 12:13 Creatinine 1.3 mg/dL (0.7-1.2) H 03/01/17 12:13 Estimated GFR 39 ml/min 03/01/17 12:13 BUN/Creatinine Ratio 25.38 % 03/01/17 12:13 Glucose 126 mg/dL (65-100) H 03/01/17 12:13 Lactic Acid 1.1 mmol/L (0.7-2.0) 03/01/17 14:12 Calcium 9.3 mg/dL (8.4-10.2) 03/01/17 12:13 Magnesium 2.00 mg/dL (1.7-2.3) 03/01/17 12:13 Total Bilirubin < 0.20 mg/dL (0.1-1.2) 03/01/17 12:13 AST 19 units/L (5-40) 03/01/17 12:13 ALT 13 units/L (7-56) 03/01/17 12:13 Alkaline Phosphatase 110 units/L (35-129) 03/01/17 12:13 Total Creatine Kinase 27 units/L (30-135) L 03/01/17 11:44 CK-MB (CK-2) 1.5 ng/mL (0.0-4.0) 03/01/17 11:44 CK-MB (CK-2) Rel Index 5.5 (0-4) H 03/01/17 11:44 Troponin T < 0.010 ng/mL (0.00-0.029) 03/01/17 11:44 Total Protein 6.7 g/dL (6.3-8.2) 03/01/17 12:13 Albumin 3.4 g/dL (3.9-5) L 03/01/17 12:13 Albumin/Globulin Ratio 1.0 % 03/01/17 12:13 TSH 1.660 mlU/mL (0.270-4.200) 03/01/17 12:13 Urine Color Yellow (Yellow) 03/01/17 15:41 Urine Turbidity Clear (Clear) 03/01/17 15:41 Urine pH 5.0 (5.0-7.0) 03/01/17 15:41 Ur Specific [place] 1.018 (1.003-1.030) 03/01/17 15:41 Urine Protein 100 mg/dl mg/dL (Negative) 03/01/17 15:41 Urine Glucose (UA) Neg mg/dL (Negative) 03/01/17 15:41 Urine Ketones Neg mg/dL (Negative) 03/01/17 15:41 Urine Blood Neg (Negative) 03/01/17 15:41 Urine Nitrite Neg (Negative) 03/01/17 15:41 Urine Bilirubin Neg (Negative) 03/01/17 15:41 Urine Urobilinogen < 2.0 mg/dL (<2.0) 03/01/17 15:41 Ur Leukocyte Esterase Neg (Negative) 03/01/17 15:41 Urine WBC (Auto) 2.0 /HPF (0.0-6.0) 03/01/17 15:41 Urine RBC (Auto) 2.0 /HPF (0.0-6.0) 03/01/17 15:41 U Epithel Cells (Auto) 2.0 /HPF (0-13.0) 03/01/17 15:41 Hyaline Casts 1 /LPF 03/01/17 15:41 Urine Mucus 2+ /HPF 03/01/17 15:41 Salicylates < 0.3 mg/dL (2.8-20.0) L 03/01/17 12:13 Urine Opiates Screen Presumptive negative 03/01/17 15:41 Urine Methadone Screen Presumptive negative 03/01/17 15:41 Acetaminophen < 15.0 ug/mL (10.0-30.0) 03/01/17 12:13 Ur Barbiturates Screen Presumptive negative 03/01/17 15:41 Ur Phencyclidine Scrn Presumptive negative 03/01/17 15:41 Ur Amphetamines Screen Presumptive negative 03/01/17 15:41 U Benzodiazepines Scrn Presumptive negative 03/01/17 15:41 Urine Cocaine Screen Presumptive negative 03/01/17 15:41 U Marijuana (THC) Screen Presumptive negative 03/01/17 15:41 Drugs of Abuse Note Disclamer 03/01/17 15:41 Plasma/Serum Alcohol < 0.01 gm% (0-0.07) 03/01/17 12:13
[2017-03-03] MEDS: ZOCOR PO SCH (21:54)
[2017-03-04 06:02] LABS: Blood Urea Nitrogen 11 mg/dL (7-17); Calcium 8.6 mg/dL (8.4-10.2); Carbon Dioxide 18 mmol/L (22-30); Chloride 101.3 mmol/L (98-107); Glucose 96 mg/dL (65-100); Sodium 133 mmol/L (137-145)
[2017-03-04 06:54] LABS: Anion Gap 18 mmol/L; Potassium 4.2 mmol/L (3.6-5.0)
--- NOTE | 2017-03-04 08:32 | Discharge Summary ---
Providers - Providers Date of Admission: 03/01/17 17:51 Date of discharge: 03/04/17 Attending physician: NICOLLE DE LA CRUZ 03/03/17 09:21 Consult to Dietitian/Nutrition [CONS] Routine Physician Instructions: Reason For Exam: Reason for Consult: Skin Risk per Prasanna Scale Primary care physician: [employer] Hospitalization Reason for admission: decreased level of consciousness Condition: Stable Pertinent studies: CXR CT head Hospital course: Patient is a 81 years old female, intermediate resident, with A. fib, hypertension, hyperlipidemia, dementia, was brought to the hospital for decreased level of consciousness and decreased by mouth intake. His diagnosed with acute renal failure and electrolyte abnormalities secondary to dehydration and with subsequent toxic metabolic encephalopathy superimposed on her dementia. She received IV fluids and electrolytes normalities have been treated accordingly. She is discharged back to intermediate in stable condition. Discharge diagnosis: 1. Acute toxic metabolic encephalopathy 2. Acute renal failure 3. Hyponatremia 4. Atrial fibrillation 5. Hypertension 6. Hyperlipidemia 7. Depression/dementia 8. Malnutrition Disposition: DC/[place] SNF [facility] Time spent for discharge: 35 min Core Measure Documentation - Palliative Care Palliative Care/ Comfort Measures: Not Applicable - Core Measures Any of the following diagnoses?: none Exam - Physical Exam Narrative exam: Patient seen and examined: - Constitutional Vitals: Temp Pulse Resp BP Pulse Ox 98.8 F 56 L 18 139/59 95 03/04/17 05:47 03/04/17 05:47 03/04/17 05:47 03/04/17 05:47 03/04/17 08:12 General appearance: Present: no acute distress - EENT Eyes: Present: PERRL, EOM intact. Absent: scleral icterus, conjunctival injection - Neck Neck: Present: supple, normal ROM. Absent: masses or JVD - Respiratory Respiratory effort: normal Respiratory: negative: rales, rhonchi - Cardiovascular Rhythm: irregularly irregular Heart Sounds: Present: S1 & S2. Absent: systolic murmur - Extremities Extremities: no ischemia - Abdominal General gastrointestinal: Present: soft, non-tender, non-distended, normal bowel sounds - Psychiatric Psychiatric: no intact judgment & insight, no memory intact, other (not oriented ) - Neurologic Neurologic: moves all extremities Plan Activity: advance as tolerated, fall precautions Diet: low cholesterol, low salt Follow up with: PRIMARY CARE, [Primary Care Provider] - 3-5 Days
[2017-03-04] MEDS: OSCAL PO SCH (10:11)
[2017-03-04] MEDS: BABY ASPIRIN PO SCH (10:12)
[2017-03-04] MEDS: CORDARONE PO SCH (10:12)
[2017-03-04] MEDS: NEURONTIN PO SCH (10:13)
[2017-03-04] MEDS: THERAGRAN-M Tab PO SCH (10:13)
[2017-03-04] MEDS: celeXA PO SCH (10:13)
[2017-03-04] MEDS: CATAPRES PO SCH (10:21)
[2017-03-04 10:24] VITALS: BP 149/62
== END 2017-03-04 14:10 | DRG 682 ==
LOC: ED 10:51 → CC2 17:51
PROVIDERS: ADMIT Internal Medicine; ATTEND Internal Medicine
DX: N17.0 Acute kidney failure with tubular necrosis (principal); G92 Toxic encephalopathy; E87.1 Hypo-osmolality and hyponatremia; E46 Unspecified protein-calorie malnutrition; I48.91 Unspecified atrial fibrillation; Z68.27 Body mass index [BMI] 27.0-27.9, adult; K21.9 Gastro-esophageal reflux disease without esophagitis; F32.9 Major depressive disorder, single episode, unspecified; F03.90 Unspecified dementia, unspecified severity, without behavioral disturbance, psychotic disturbance, mood disturbance, and anxiety; I44.7 Left bundle-branch block, unspecified; I10 Essential (primary) hypertension; Z88.2 Allergy status to sulfonamides; Z79.82 Long term (current) use of aspirin; Z88.8 Allergy status to other drugs, medicaments and biological substances
CPT/HCPCS: 36415; 70450; 71010; 80048; 80053; 80307; 80320; 81001; 82140; 82550; 82553; 83735; 84443; 84484; 85025; 93005; 93010; 96374; G0480; G8996-GN; G8997-GN; G8998-GN; J0696; J7030

== ENCOUNTER 2018-12-02 14:03 | Emergency (ER) | payer MEDICARE ==
--- NOTE | 2018-12-02 14:51 | Emergency Department Report ---
ED General Adult HPI - General Chief complaint: Dyspnea/Respdistress Stated complaint: NOT EATING Time Seen by Provider: 12/02/18 14:30 Source: patient Mode of arrival: Stretcher Limitations: No Limitations - History of Present Illness Initial comments: Patient is an 83-year-old female that presents emergency room with complaints of shortness of breath. Patient denies soreness of breath and difficulty in breathing. Patient states her son sent her here for evaluation but never spoke with her today. Patient states she lives at a assisted living. Patient is not in any distress at this time. Patient is A&O 3. Patient answers all questions appropriately. Patient denies chest pain. Patient denies fever chills. Patient denies cough. Patient has been on plate. Patient denies abdominal pain. Patient denies difficulties in breathing. Patient denies being uncomfortable. -: Sudden Consistency: now resolved Improves with: none Worsens with: none Associated Symptoms: denies other symptoms Treatments Prior to Arrival: none - Related Data Home Medications Medication Instructions Recorded Confirmed Last Taken Amiodarone HCl [Amiodarone 100 MG 200 mg PO BID 11/06/14 03/03/17 11/06/14 TAB] Aspirin [Aspirin BABY CHEW TAB] 81 mg PO QDAY 11/06/14 03/03/17 11/06/14 Calcium Carbonate [Calcium] 600 mg PO DAILY 11/06/14 03/03/17 11/06/14 Citalopram Hydrobromide [celeXA] 20 mg PO DAILY 11/06/14 03/03/17 11/06/14 Ferrous Sulfate [Feosol 325 MG tab] 325 mg PO ONCE 11/06/14 03/03/17 11/06/14 Gabapentin [Neurontin] 400 mg PO BID 11/06/14 03/03/17 11/06/14 Multivitamin [Multi-Vitamin Daily] 1 tab PO DAILY 11/06/14 03/03/17 11/06/14 Pravastatin Sodium [Pravastatin] 20 mg PO QHS 11/06/14 03/03/17 11/05/14 cloNIDine [Catapres] 0.1 mg PO TID 11/06/14 03/03/17 11/06/14 Previous Rx's Medication Instructions Recorded Last Taken Type clonazePAM 1 mg PO QDAY PRN #5 tablet 08/03/16 Unknown Rx Allergies Allergy/AdvReac Type Severity Reaction Status Date / Time iodine Allergy Unknown Verified 08/03/16 14:13 NSAIDS (Non-Steroidal Allergy Unknown Verified 08/03/16 14:13 Anti-Inflamma Sulfa (Sulfonamide Allergy Unknown Verified 08/03/16 14:13 Antibiotics) sulfamethoxazole Allergy Unknown Verified 10/29/14 10:19 [From Bactrim] trimethoprim [From Bactrim] Allergy Unknown Verified 10/29/14 10:19 ED Review of Systems ROS: Stated complaint: NOT EATING Other details as noted in HPI Constitutional: denies: chills, fever Eyes: denies: eye pain, eye discharge, vision change ENT: denies: ear pain, throat pain Respiratory: denies: cough, shortness of breath, wheezing Cardiovascular: denies: chest pain, palpitations Endocrine: no symptoms reported Gastrointestinal: denies: abdominal pain, nausea, diarrhea Genitourinary: denies: urgency, dysuria, discharge Musculoskeletal: denies: back pain, joint swelling, arthralgia Skin: denies: rash, lesions Neurological: denies: headache, weakness, paresthesias Psychiatric: denies: anxiety, depression Hematological/Lymphatic: denies: easy bleeding, easy bruising ED Past Medical Hx - Past Medical History Previous Medical History?: Yes Hx Hypertension: Yes Hx GERD: Yes Hx Psychiatric Treatment: Yes (depression) Hx COPD: Yes Hx Dementia: Yes Hx HIV: No Additional medical history: a-fib - Surgical History Past Surgical History?: Yes Additional Surgical History: R hip fx repair in May - Family History Family history: no significant - Social History Smoking Status: Never Smoker Substance Use Type: None - Medications Home Medications: Home Medications Medication Instructions Recorded Confirmed Last Taken Type Amiodarone HCl [Amiodarone 100 MG 200 mg PO BID 11/06/14 03/03/17 11/06/14 History TAB] Aspirin [Aspirin BABY CHEW TAB] 81 mg PO QDAY 11/06/14 03/03/17 11/06/14 History Calcium Carbonate [Calcium] 600 mg PO DAILY 11/06/14 03/03/17 11/06/14 History Citalopram Hydrobromide [celeXA] 20 mg PO DAILY 11/06/14 03/03/17 11/06/14 History Ferrous Sulfate [Feosol 325 MG tab] 325 mg PO ONCE 01/02/1503/03/17 11/06/14 History Gabapentin [Neurontin] 400 mg PO BID 11/06/14 03/03/17 11/06/14 History Multivitamin [Multi-Vitamin Daily] 1 tab PO DAILY 11/06/14 03/03/17 11/06/14 History Pravastatin Sodium [Pravastatin] 20 mg PO QHS 11/06/14 03/03/17 11/05/14 History cloNIDine [Catapres] 0.1 mg PO TID 11/06/14 03/03/17 11/06/14 History clonazePAM 1 mg PO QDAY PRN #5 tablet 08/03/16 03/03/17 Unknown Rx ED Physical Exam - General Limitations: No Limitations General appearance: alert, in no apparent distress - Head Head exam: Present: atraumatic, normocephalic - Eye Eye exam: Present: normal appearance - ENT ENT exam: Present: mucous membranes moist - Neck Neck exam: Present: normal inspection - Respiratory Respiratory exam: Present: normal lung sounds bilaterally. Absent: respiratory distress - Cardiovascular Cardiovascular Exam: Present: regular rate, normal rhythm. Absent: systolic murmur, diastolic murmur, rubs, gallop - GI/Abdominal GI/Abdominal exam: Present: soft, normal bowel sounds - Extremities Exam Extremities exam: Present: normal inspection - Back Exam Back exam: Present: normal inspection - Neurological Exam Neurological exam: Present: alert, oriented X3 - Psychiatric Psychiatric exam: Present: normal affect, normal mood - Skin Skin exam: Present: warm, dry, intact, normal color. Absent: rash ED Course Vital Signs 12/02/18 14:07 Pulse Rate 76 Respiratory 18 Rate Blood Pressure 133/60 O2 Sat by Pulse 97 Oximetry - Reevaluation(s) Reevaluation #1: Patient is stable. Patient will be discharged back to her personal fci. Patient given discharge instructions. Patient to follow-up with primary care. Patient given return to ER instructions. Patient was understanding of instructions. Patient tolerated by mouth intake. Patient eating and drinking. Patient they will discharge and was discharged home. 12/02/18 14:49 ED Medical Decision Making - Medical Decision Making Patient is an 83-year-old female that presents emergency room with possible shortness of breath difficulty breathing. Patient denies any symptoms. Patient is stable. Patient exam within normal limits. Patient will be transferred back to her personal fci. Patient stable for discharge. Clinically no further evaluation was needed at this time. Patient's vital signs were stable. Patient is not on oxygen and is satting normal. Patient is not tachycardic. Blood pressure within normal limits. - Differential Diagnosis SOB. Medical clearance Critical care attestation.: If time is entered above; I have spent that time in minutes in the direct care of this critically ill patient, excluding procedure time. ED Disposition Clinical Impression: SOB (shortness of breath), Evaluation by medical service required Hypertension Qualifiers: Hypertension type: essential hypertension Qualified Code(s): I10 - Essential (primary) hypertension Disposition: DC-01 TO HOME OR SELFCARE Is pt being admited?: No Does the pt Need Aspirin: No Condition: Stable Instructions: Hypertension (ED) Additional Instructions: Follow-up with primary care in 3- 5 days. Patient to return to ER if condition worsens. Patient to be discharged back to her personal fci. Patient to increase water. Referrals: ANA CRISTINA PAN MD [Primary Care Provider] - 3-5 Days Time of Disposition: 14:51
== END 2018-12-02 16:30 | disposition home or self-care (01) ==
LOC: ED 14:03
CPT/HCPCS: 99283

== ENCOUNTER 2019-01-01 10:45 | Inpatient (IN) | payer MEDICARE ==
--- NOTE | 2019-01-01 11:29 | Emergency Department Report ---
ED General Adult HPI - General Chief complaint: Weakness Stated complaint: CHEST PAIN Time Seen by Provider: 01/01/19 11:20 Source: patient, EMS (ems notes not available at time of chart dictation), RN notes reviewed, old records reviewed Mode of arrival: Stretcher Limitations: Altered Mental Status - History of Present Illness Initial comments: This is an 83-year-old female. The patient is not known to this provider previously. As per review of old medical records, the patient has a history of atrial fibrillation, hypertension, high cholesterol, dementia. The patient has been admitted to the medical service in the past for acute toxic metabolic encephalopathy, acute renal insufficiency, depression, dementia and malnutrition. The patient is reportedly brought to the hospital by emergency medical services for reported chest pain. On arrival to the emergency room, the patient is altered. The patient makes no complaints. Patient's eyes are open, and she follows commands. This provider walks into the room, the patient says "no." Patient is not able to answer open-ended questions, although to close and the questions, she indicates that she is not having a headache, not having neck pain, not having chest pain, not having abdominal pain. The patient is moving 4 extremities spontaneously, and the patient also does so and to command. The patient also blinks in response to commands and suggestion. No additional history is available at this time. -: unknown Quality: other Consistency: other Improves with: other Worsens with: other Associated Symptoms: confusion - Related Data Home Medications Medication Instructions Recorded Confirmed Last Taken Amiodarone HCl [Amiodarone 100 MG 200 mg PO BID 11/06/14 03/03/17 11/06/14 TAB] Aspirin [Aspirin BABY CHEW TAB] 81 mg PO QDAY 11/06/14 03/03/17 11/06/14 Calcium Carbonate [Calcium] 600 mg PO DAILY 11/06/14 03/03/17 11/06/14 Citalopram Hydrobromide [celeXA] 20 mg PO DAILY 11/06/14 03/03/17 11/06/14 Ferrous Sulfate [Feosol 325 MG tab] 325 mg PO ONCE 11/06/14 03/03/17 11/06/14 Gabapentin [Neurontin] 400 mg PO BID 11/06/14 03/03/17 11/06/14 Multivitamin [Multi-Vitamin Daily] 1 tab PO DAILY 11/06/14 03/03/17 11/06/14 Pravastatin Sodium [Pravastatin] 20 mg PO QHS 11/06/14 03/03/17 11/05/14 cloNIDine [Catapres] 0.1 mg PO TID 11/06/14 03/03/17 11/06/14 Previous Rx's Medication Instructions Recorded Last Taken Type clonazePAM 1 mg PO QDAY PRN #5 tablet 08/03/16 Unknown Rx Allergies Allergy/AdvReac Type Severity Reaction Status Date / Time iodine Allergy Unknown Verified 08/03/16 14:13 NSAIDS (Non-Steroidal Allergy Unknown Verified 08/03/16 14:13 Anti-Inflamma Sulfa (Sulfonamide Allergy Unknown Verified 08/03/16 14:13 Antibiotics) sulfamethoxazole Allergy Unknown Verified 10/29/14 10:19 [From Bactrim] trimethoprim [From Bactrim] Allergy Unknown Verified 10/29/14 10:19 ED Review of Systems ROS: Stated complaint: CHEST PAIN Other details as noted in HPI Comment: Unobtainable due to pts medical conditions ED Past Medical Hx - Past Medical History Hx Hypertension: Yes Hx GERD: Yes Hx Psychiatric Treatment: Yes (depression) Hx COPD: Yes Hx Dementia: Yes Hx HIV: No Additional medical history: a-fib - Surgical History Additional Surgical History: R hip fx repair in May - Social History Smoking Status: Never Smoker Substance Use Type: None - Medications Home Medications: Home Medications Medication Instructions Recorded Confirmed Last Taken Type Amiodarone HCl [Amiodarone 100 MG 200 mg PO BID 11/06/14 03/03/17 11/06/14 History TAB] Aspirin [Aspirin BABY CHEW TAB] 81 mg PO QDAY 11/06/14 03/03/17 11/06/14 History Calcium Carbonate [Calcium] 600 mg PO DAILY 11/06/14 03/03/17 11/06/14 History Citalopram Hydrobromide [celeXA] 20 mg PO DAILY 11/06/14 03/03/17 11/06/14 History Ferrous Sulfate [Feosol 325 MG tab] 325 mg PO ONCE 11/06/14 03/03/17 11/06/14 History Gabapentin [Neurontin] 400 mg PO BID 11/06/14 03/03/17 11/06/14 History Multivitamin [Multi-Vitamin Daily] 1 tab PO DAILY 11/06/14 03/03/17 11/06/14 History Pravastatin Sodium [Pravastatin] 20 mg PO QHS 11/06/14 03/03/17 11/05/14 History cloNIDine [Catapres] 0.1 mg PO TID 11/06/14 03/03/17 11/06/14 History clonazePAM 1 mg PO QDAY PRN #5 tablet 08/03/16 03/03/17 Unknown Rx ED Physical Exam - General Limitations: Altered Mental Status General appearance: alert, in no apparent distress - Head Head exam: Present: atraumatic, normocephalic - Eye Eye exam: Present: normal appearance, PERRL, EOMI. Absent: nystagmus - ENT ENT exam: Present: normal exam, normal orophraynx, mucous membranes moist, normal external ear exam - Neck Neck exam: Present: normal inspection, full ROM. Absent: tenderness, meningismus - Respiratory Respiratory exam: Present: normal lung sounds bilaterally. Absent: respiratory distress - Cardiovascular Cardiovascular Exam: Present: regular rate, normal rhythm, normal heart sounds. Absent: bradycardia, tachycardia, irregular rhythm, systolic murmur, diastolic murmur, rubs, gallop - GI/Abdominal GI/Abdominal exam: Present: soft. Absent: distended, tenderness, guarding, rebound, rigid, pulsatile mass - Extremities Exam Extremities exam: Present: normal inspection, full ROM, other (2+ pulses noted in the bilateral upper, lower extremities. Compartments soft. No long bony tenderness. The pelvis is stable.). Absent: calf tenderness - Back Exam Back exam: Present: normal inspection, full ROM. Absent: tenderness, CVA tenderness (R), paraspinal tenderness, vertebral tenderness - Neurological Exam Neurological exam: Present: altered (patient is awake. Patient follows commands. Patient moves for family spontaneously. There is no facial droop. The tongue is midline. Unable to complete detailed neurologic examination secondary to altered mental status.) - Psychiatric Psychiatric exam: Present: flat affect - Skin Skin exam: Present: warm, dry, intact, normal color. Absent: rash ED Course Vital Signs 01/01/19 01/01/19 11:04 11:53 Temperature 99.1 F Pulse Rate 68 Respiratory 14 Rate Blood Pressure 161/73 O2 Sat by Pulse 100 Oximetry - Reevaluation(s) Reevaluation #1: 03/01/19 12:21 Differential diagnosis, including but not limited to: Acute coronary syndrome, pneumonia, stroke, urinary tract infection, dementia Assessment and plan: 83-year-old female who has a known history of dementia, who is currently not answering open-ended questions, but will answer "yes", "no" to close ended questions. The patient is afebrile with reassuring vital signs, and moving 4 extremities spontaneously. The patient is not a TPA candidate as her last known well time is not known. Given her underlying dementia, motor examination, fpc dependence, she does not meet criteria for emergent CT angiogram, as her pre-existing cognitive and medical comorbidities would likely preclude angiographic intervention. Urinalysis suggests possible urinary tract infection, she may have a right-sided pneumonia, she has a low-grade troponin, in the context of normal renal function, and she is also found to be hypokalemic. The case was presented to the Hospital physician, Dr. Owens, who has accepted the patient to the medical service. Reevaluation #2: 01/01/19 12:59 CT scan of the brain is read as negative for acute disease. Patient reportedly allergic to NSAIDs, Plavix ordered. ED Medical Decision Making - Lab Data Result diagrams: 01/01/19 11:34 01/01/19 11:34 Vital Signs 01/01/19 01/01/19 11:04 11:53 Temperature 99.1 F Pulse Rate 68 Respiratory 14 Rate Blood Pressure 161/73 O2 Sat by Pulse 100 Oximetry Lab Results 01/01/19 01/01/19 01/01/19 Range/Units 11:34 11:34 11:34 WBC 7.4 (4.5-11.0) K/mm3 RBC 4.18 (3.65-5.03) M/mm3 Hgb 12.8 (10.1-14.3) gm/dl Hct 37.2 (30.3-42.9) % MCV 89 (79-97) fl MCH 31 (28-32) pg MCHC 34 (30-34) % RDW 14.9 (13.2-15.2) % Plt Count 334 (140-440) K/mm3 Lymph % (Auto) 28.1 (13.4-35.0) % Dickey % (Auto) 6.4 (0.0-7.3) % Eos % (Auto) 0.1 (0.0-4.3) % Baso % (Auto) 0.8 (0.0-1.8) % Lymph # 2.1 (1.2-5.4) K/mm3 Dickey # 0.5 (0.0-0.8) K/mm3 Eos # 0.0 (0.0-0.4) K/mm3 Baso # 0.1 (0.0-0.1) K/mm3 Seg Neutrophils % 64.6 (40.0-70.0) % Seg Neutrophils # 4.8 (1.8-7.7) K/mm3 PT 14.3 (12.2-14.9) Sec. INR 1.05 (0.87-1.13) APTT 20.3 L (24.2-36.6) Sec. Thrombin Time 15.7 (15.1-19.6) Sec. Sodium (137-145) mmol/L Potassium (3.6-5.0) mmol/L Chloride (98-107) mmol/L Carbon Dioxide (22-30) mmol/L Anion Gap mmol/L BUN (7-17) mg/dL Creatinine (0.7-1.2) mg/dL Estimated GFR ml/min BUN/Creatinine Ratio % Glucose (65-100) mg/dL Lactic Acid (0.7-2.0) mmol/L Calcium (8.4-10.2) mg/dL Magnesium (1.7-2.3) mg/dL Total Bilirubin (0.1-1.2) mg/dL AST (5-40) units/L ALT (7-56) units/L Alkaline Phosphatase (35-129) units/L Total Creatine Kinase 190 H (30-135) units/L CK-MB (CK-2) 5.2 H (0.0-4.0) ng/mL CK-MB (CK-2) Rel Index 2.7 (0-4) Troponin T 0.037 H (0.00-0.029) ng/mL Total Protein (6.3-8.2) g/dL Albumin (3.9-5) g/dL Albumin/Globulin Ratio % Urine Color (Yellow) Urine Turbidity (Clear) Urine pH (5.0-7.0) Ur Specific Wever (1.003-1.030) Urine Protein (Negative) mg/dL Urine Glucose (UA) (Negative) mg/dL Urine Ketones (Negative) mg/dL Urine Blood (Negative) Urine Nitrite (Negative) Urine Bilirubin (Negative) Urine Urobilinogen (<2.0) mg/dL Ur Leukocyte Esterase (Negative) Urine WBC (Auto) (0.0-6.0) /HPF Urine RBC (Auto) (0.0-6.0) /HPF U Epithel Cells (Auto) (0-13.0) /HPF Urine Bacteria (Auto) (Negative) /HPF Urine Mucus /HPF Salicylates (2.8-20.0) mg/dL Urine Opiates Screen Urine Methadone Screen Acetaminophen (10.0-30.0) ug/mL Ur Barbiturates Screen Ur Phencyclidine Scrn Ur Amphetamines Screen U Benzodiazepines Scrn Urine Cocaine Screen U Marijuana (THC) Screen Drugs of Abuse Note Plasma/Serum Alcohol (0-0.07) % 01/01/19 01/01/19 01/01/19 Range/Units 11:34 11:34 11:34 WBC (4.5-11.0) K/mm3 RBC (3.65-5.03) M/mm3 Hgb (10.1-14.3) gm/dl Hct (30.3-42.9) % MCV (79-97) fl MCH (28-32) pg MCHC (30-34) % RDW (13.2-15.2) % Plt Count (140-440) K/mm3 Lymph % (Auto) (13.4-35.0) % Dickey % (Auto) (0.0-7.3) % Eos % (Auto) (0.0-4.3) % Baso % (Auto) (0.0-1.8) % Lymph # (1.2-5.4) K/mm3 Dickey # (0.0-0.8) K/mm3 Eos # (0.0-0.4) K/mm3 Baso # (0.0-0.1) K/mm3 Seg Neutrophils % (40.0-70.0) % Seg Neutrophils # (1.8-7.7) K/mm3 PT (12.2-14.9) Sec. INR (0.87-1.13) APTT (24.2-36.6) Sec. Thrombin Time (15.1-19.6) Sec. Sodium 138 (137-145) mmol/L Potassium 3.2 L (3.6-5.0) mmol/L Chloride 100.1 (98-107) mmol/L Carbon Dioxide 21 L (22-30) mmol/L Anion Gap 20 mmol/L BUN 10 (7-17) mg/dL Creatinine 0.5 L (0.7-1.2) mg/dL Estimated GFR > 60 ml/min BUN/Creatinine Ratio 20 % Glucose 109 H (65-100) mg/dL Lactic Acid 1.10 (0.7-2.0) mmol/L Calcium 9.0 (8.4-10.2) mg/dL Magnesium (1.7-2.3) mg/dL Total Bilirubin 0.50 (0.1-1.2) mg/dL AST 26 (5-40) units/L ALT 12 (7-56) units/L Alkaline Phosphatase 93 (35-129) units/L Total Creatine Kinase (30-135) units/L CK-MB (CK-2) (0.0-4.0) ng/mL CK-MB (CK-2) Rel Index (0-4) Troponin T (0.00-0.029) ng/mL Total Protein 6.4 (6.3-8.2) g/dL Albumin 3.9 (3.9-5) g/dL Albumin/Globulin Ratio 1.6 % Urine Color (Yellow) Urine Turbidity (Clear) Urine pH (5.0-7.0) Ur Specific Wever (1.003-1.030) Urine Protein (Negative) mg/dL Urine Glucose (UA) (Negative) mg/dL Urine Ketones (Negative) mg/dL Urine Blood (Negative) Urine Nitrite (Negative) Urine Bilirubin (Negative) Urine Urobilinogen (<2.0) mg/dL Ur Leukocyte Esterase (Negative) Urine WBC (Auto) (0.0-6.0) /HPF Urine RBC (Auto) (0.0-6.0) /HPF U Epithel Cells (Auto) (0-13.0) /HPF Urine Bacteria (Auto) (Negative) /HPF Urine Mucus /HPF Salicylates (2.8-20.0) mg/dL Urine Opiates Screen Urine Methadone Screen Acetaminophen (10.0-30.0) ug/mL Ur Barbiturates Screen Ur Phencyclidine Scrn Ur Amphetamines Screen U Benzodiazepines Scrn Urine Cocaine Screen U Marijuana (THC) Screen Drugs of Abuse Note Plasma/Serum Alcohol < 0.01 (0-0.07) % 01/01/19 01/01/19 01/01/19 Range/Units 11:34 11:34 11:34 WBC (4.5-11.0) K/mm3 RBC (3.65-5.03) M/mm3 Hgb (10.1-14.3) gm/dl Hct (30.3-42.9) % MCV (79-97) fl MCH (28-32) pg MCHC (30-34) % RDW (13.2-15.2) % Plt Count (140-440) K/mm3 Lymph % (Auto) (13.4-35.0) % Dickey % (Auto) (0.0-7.3) % Eos % (Auto) (0.0-4.3) % Baso % (Auto) (0.0-1.8) % Lymph # (1.2-5.4) K/mm3 Dickey # (0.0-0.8) K/mm3 Eos # (0.0-0.4) K/mm3 Baso # (0.0-0.1) K/mm3 Seg Neutrophils % (40.0-70.0) % Seg Neutrophils # (1.8-7.7) K/mm3 PT (12.2-14.9) Sec. INR (0.87-1.13) APTT (24.2-36.6) Sec. Thrombin Time (15.1-19.6) Sec. Sodium (137-145) mmol/L Potassium (3.6-5.0) mmol/L Chloride (98-107) mmol/L Carbon Dioxide (22-30) mmol/L Anion Gap mmol/L BUN (7-17) mg/dL Creatinine (0.7-1.2) mg/dL Estimated GFR ml/min BUN/Creatinine Ratio % Glucose (65-100) mg/dL Lactic Acid (0.7-2.0) mmol/L Calcium (8.4-10.2) mg/dL Magnesium 1.80 (1.7-2.3) mg/dL Total Bilirubin (0.1-1.2) mg/dL AST (5-40) units/L ALT (7-56) units/L Alkaline Phosphatase (35-129) units/L Total Creatine Kinase (30-135) units/L CK-MB (CK-2) (0.0-4.0) ng/mL CK-MB (CK-2) Rel Index (0-4) Troponin T (0.00-0.029) ng/mL Total Protein (6.3-8.2) g/dL Albumin (3.9-5) g/dL Albumin/Globulin Ratio % Urine Color (Yellow) Urine Turbidity (Clear) Urine pH (5.0-7.0) Ur Specific Wever (1.003-1.030) Urine Protein (Negative) mg/dL Urine Glucose (UA) (Negative) mg/dL Urine Ketones (Negative) mg/dL Urine Blood (Negative) Urine Nitrite (Negative) Urine Bilirubin (Negative) Urine Urobilinogen (<2.0) mg/dL Ur Leukocyte Esterase (Negative) Urine WBC (Auto) (0.0-6.0) /HPF Urine RBC (Auto) (0.0-6.0) /HPF U Epithel Cells (Auto) (0-13.0) /HPF Urine Bacteria (Auto) (Negative) /HPF Urine Mucus /HPF Salicylates 0.6 L (2.8-20.0) mg/dL Urine Opiates Screen Urine Methadone Screen Acetaminophen < 5.0 L (10.0-30.0) ug/mL Ur Barbiturates Screen Ur Phencyclidine Scrn Ur Amphetamines Screen U Benzodiazepines Scrn Urine Cocaine Screen U Marijuana (THC) Screen Drugs of Abuse Note Plasma/Serum Alcohol (0-0.07) % 01/01/19 01/01/19 Range/Units 11:53 11:53 WBC (4.5-11.0) K/mm3 RBC (3.65-5.03) M/mm3 Hgb (10.1-14.3) gm/dl Hct (30.3-42.9) % MCV (79-97) fl MCH (28-32) pg MCHC (30-34) % RDW (13.2-15.2) % Plt Count (140-440) K/mm3 Lymph % (Auto) (13.4-35.0) % Dickey % (Auto) (0.0-7.3) % Eos % (Auto) (0.0-4.3) % Baso % (Auto) (0.0-1.8) % Lymph # (1.2-5.4) K/mm3 Dickey # (0.0-0.8) K/mm3 Eos # (0.0-0.4) K/mm3 Baso # (0.0-0.1) K/mm3 Seg Neutrophils % (40.0-70.0) % Seg Neutrophils # (1.8-7.7) K/mm3 PT (12.2-14.9) Sec. INR (0.87-1.13) APTT (24.2-36.6) Sec. Thrombin Time (15.1-19.6) Sec. Sodium (137-145) mmol/L Potassium (3.6-5.0) mmol/L Chloride (98-107) mmol/L Carbon Dioxide (22-30) mmol/L Anion Gap mmol/L BUN (7-17) mg/dL Creatinine (0.7-1.2) mg/dL Estimated GFR ml/min BUN/Creatinine Ratio % Glucose (65-100) mg/dL Lactic Acid (0.7-2.0) mmol/L Calcium (8.4-10.2) mg/dL Magnesium (1.7-2.3) mg/dL Total Bilirubin (0.1-1.2) mg/dL AST (5-40) units/L ALT (7-56) units/L Alkaline Phosphatase (35-129) units/L Total Creatine Kinase (30-135) units/L CK-MB (CK-2) (0.0-4.0) ng/mL CK-MB (CK-2) Rel Index (0-4) Troponin T (0.00-0.029) ng/mL Total Protein (6.3-8.2) g/dL Albumin (3.9-5) g/dL Albumin/Globulin Ratio % Urine Color Yellow (Yellow) Urine Turbidity Cloudy (Clear) Urine pH 6.0 (5.0-7.0) Ur Specific Wever 1.026 (1.003-1.030) Urine Protein 100 mg/dl (Negative) mg/dL Urine Glucose (UA) Neg (Negative) mg/dL Urine Ketones 80 (Negative) mg/dL Urine Blood Neg (Negative) Urine Nitrite Neg (Negative) Urine Bilirubin Neg (Negative) Urine Urobilinogen 4.0 (<2.0) mg/dL Ur Leukocyte Esterase Neg (Negative) Urine WBC (Auto) 7.0 H (0.0-6.0) /HPF Urine RBC (Auto) 8.0 (0.0-6.0) /HPF U Epithel Cells (Auto) 3.0 (0-13.0) /HPF Urine Bacteria (Auto) 2+ (Negative) /HPF Urine Mucus 3+ /HPF Salicylates (2.8-20.0) mg/dL Urine Opiates Screen Presumptive negative Urine Methadone Screen Presumptive negative Acetaminophen (10.0-30.0) ug/mL Ur Barbiturates Screen Presumptive negative Ur Phencyclidine Scrn Presumptive negative Ur Amphetamines Screen Presumptive negative U Benzodiazepines Scrn Presumptive negative Urine Cocaine Screen Presumptive negative U Marijuana (THC) Screen Presumptive negative Drugs of Abuse Note Disclamer Plasma/Serum Alcohol (0-0.07) % - EKG Data -: EKG Interpreted by Me EKG shows normal: sinus rhythm - EKG Data 01/01/19 12:20 Sinus, 67 bpm, left axis deviation, left bundle branch block, QTC prolonged, appears unchanged from 03/01/2017, abnormal ekg, not consistent with ST elevatio n myocardial infarction. - Radiology Data Radiology results: pending, image reviewed interpreted by me: X-ray of the chest suggests right middle lobe, atelectasis versus infiltrate Critical care attestation.: If time is entered above; I have spent that time in minutes in the direct care of this critically ill patient, excluding procedure time. ED Disposition Clinical Impression: Altered mental status, Encephalopathy, Left bundle branch block, Debility, Hypokalemia Disposition: DC-09 OP ADMIT IP TO THIS HOSP Is pt being admited?: Yes Condition: Stable Referrals: MAXIM MACK MD [Primary Care Provider] - 3-5 Days - Assessment Assessment Interval: Baseline - Level of Consciousness 1a. Level of Consciousness: alert/keenly responsive - LOC Questions 1b. LOC Questions: answers no questions correctly - LOC Command 1c. LOC Commands: performs tasks correctly - Best Gaze 2. Best Gaze: normal - Visual 3. Visual: no visual loss (unable to assess) - Facial Palsy 4. Facial Palsy: normal symmetrical movement - Motor Arm 5b. Motor Arm Right: no drift 5a. Motor Arm Left: no drift - Motor Leg 6b. Motor Leg Right: no drift 6a. Motor Leg Left: no drift - Limb Ataxia 7. Limb Ataxia: amputation (unable to assess) - Sensory 8. Sensory: normal - Best Language 9. Best Language: mild/moderate aphasia - Dysarthria 10. Dysarthria: normal - Extinction and Inattention 11. Extinction/Inattention: visual/tactile inattention - Scoring Total Score: 4 Stroke Severity: Minor Stroke
[2019-01-01 11:55] LABS: Basophils # (Auto) 0.1 K/mm3 (0.0-0.1); Basophils % (Auto) 0.8 % (0.0-1.8); Eosinophils % (Auto) 0.1 % (0.0-4.3); Hematocrit 37.2 % (30.3-42.9); Hemoglobin 12.8 gm/dl (10.1-14.3); Lymphocytes # (Auto) 2.1 K/mm3 (1.2-5.4); Lymphocytes % (Auto) 28.1 % (13.4-35.0); Mean Corpuscular HGB Conc 34 % (30-34); Mean Corpuscular Volume 89 fl (79-97); Monocytes # (Auto) 0.5 K/mm3 (0.0-0.8); Monocytes % (Auto) 6.4 % (0.0-7.3); Platelet Count 334 K/mm3 (140-440); Red Blood Count 4.18 M/mm3 (3.65-5.03); Red Cell Distribution Width 14.9 % (13.2-15.2)
[2019-01-01 12:06] LABS: Bacteria,Urine 2+ /HPF (Negative); Bilirubin,Urine NEG (Negative); Blood,Urine NEG (Negative); Color,Urine Yellow (Yellow); Mucus,Urine 3+ /HPF
[2019-01-01 12:07] LABS: INR 1.05 (0.87-1.13); Partial Thromboplastin Time 20.3 Sec. (24.2-36.6)
[2019-01-01 12:08] LABS: Thrombin Time 15.7 Sec. (15.1-19.6)
[2019-01-01 12:11] LABS: Alanine Aminotransferase 12 units/L (7-56); Albumin 3.9 g/dL (3.9-5); BUN/Creatinine Ratio 20; Blood Urea Nitrogen 10 mg/dL (7-17); Hemolysis Index 2
[2019-01-01 12:13] LABS: Creatine Kinase MB 5.2 ng/mL (0.0-4.0)
[2019-01-01 12:13] LABS: Amphetamine Screen,Urine PRESUMPTIVE NEGATIVE; Benzodiazepines Screen,Urine PRESUMPTIVE NEGATIVE; Cannabinoid Screen,Urine PRESUMPTIVE NEGATIVE; Cocaine Screen,Urine PRESUMPTIVE NEGATIVE; Methadone Screen,Urine PRESUMPTIVE NEGATIVE; Opiate Screen,Urine PRESUMPTIVE NEGATIVE
[2019-01-01] MEDS ORDERED: ROCEPHIN 1,000 MG in NACL 0.9% 50 ML IV STA (12:15)
[2019-01-01] MEDS ORDERED: NACL 0.9% 500 ML 500 ML IV ONE (12:15)
[2019-01-01] MEDS ORDERED: K-DUR PO ONE ×2 (12:16→23:40)
--- NOTE | 2019-01-01 12:35 | XRay Report ---
PORTABLE CHEST INDICATION: Chest pain. COMPARISON: 03/01/2017 FINDINGS: Portable, frontal chest radiograph demonstrates better inspiration with improved mid to lower lung markings/densities. No pleural effusions or CHF, though background of slightly prominent lung markings may again be noted. Stable 7-8 mm peripheral left upper lobe calcified granuloma. Mild biapical scarring/pleural thickening. Stable cardiomediastinal silhouette. Extensive aortic atherosclerotic calcifications. EKG leads. Demineralized bones. CONCLUSION: No acute significant chest process with few stable findings, as described. Thank you for the opportunity to participate in this patient's care.
[2019-01-01 12:44] LABS: Chol/HDL Ratio 6.83 %
[2019-01-01] MEDS ORDERED: PLAVIX PO ONE (12:58)
[2019-01-01] MEDS ORDERED: ROCEPHIN/NS 1 GM/50 ML 1 GM/50 ML BAG IV SCH (13:00)
--- NOTE | 2019-01-01 13:01 | Cat Scan Report ---
CT HEAD WITHOUT CONTRAST INDICATION: Stroke symptoms. COMPARISON: 03/01/2017. FINDINGS: Noncontrast head CT somewhat limited due to motion artifact, though demonstrates stable, age-appropriate, mildly enlarged ventricles and sulci. Mild periventricular and few white matter hypodensities again noted, including bilateral basal ganglia lacunar infarcts measuring up to approximately 0.7 cm, axial images 26-29. No definite acute infarct, hemorrhage, mass effect or midline shift. No abnormal extra axial fluid collections. Normal posterior fossa with preserved basilar cisterns. Stable eye globes with bilateral cataract surgery. Rightward nasal septal deviation again noted. Clear imaged paranasal sinuses and mastoid air cells. Extensive atherosclerotic ICA calcifications. Normal calvarium and scalp. Few radiopaque dental material. CONCLUSION: No definite acute intracranial CT abnormality on this limited exam with age-appropriate atrophy and microvascular changes again noted, as described. Please correlate. I phoned the above results to Dr. Solorzano in the ER, 12:45 PM, 01/01/2019. Thank you for the opportunity to participate in this patient's care.
[2019-01-01] MEDS ORDERED: PLAVIX ONE (13:32)
[2019-01-01] MEDS: KCL 10MEQ/100ML 10 MEQ/100 ML BAG IV SCH ×2 (13:39→16:00)
[2019-01-01] MEDS ORDERED: MUCINEX ER PO ONE (22:00)
[2019-01-01] MEDS ORDERED: DULCOLAX PR PRN (23:35)
[2019-01-01] MEDS ORDERED: TYLENOL PO PRN ×2 (23:35→23:37)
[2019-01-01] MEDS ORDERED: HALDOL PO PRN (23:35)
[2019-01-01] MEDS ORDERED: LEVSIN SL SL PRN (23:35)
[2019-01-01] MEDS ORDERED: COLACE PO PRN (23:35)
[2019-01-01] MEDS ORDERED: LOMOTIL PO PRN (23:35)
[2019-01-01] MEDS ORDERED: DILAUDID IV PRN (23:37)
[2019-01-01] MEDS ORDERED: ZOFRAN IV PRN (23:37)
[2019-01-01] MEDS ORDERED: SODIUM CHLORIDE FLUSH SYRINGE 10 ML IV PRN (23:37)
[2019-01-01] MEDS ORDERED: PERCOCET 5/325 PO PRN (23:37)
--- NOTE | 2019-01-01 23:43 | Event Note ---
Date: 01/01/19 See dictated H/p in reports Chest pain r/o LA Htn Dementia Hypokalemia UTI
[2019-01-02] MEDS: NEURONTIN PO SCH ×3 (00:45→21:28)
[2019-01-02] MEDS: MACROBID PO SCH ×3 (00:59→21:28)
[2019-01-02 06:43] LABS: Basophils % (Auto) 0.6 % (0.0-1.8); Eosinophils % (Auto) 0.6 % (0.0-4.3); Hematocrit 35.4 % (30.3-42.9); Hemoglobin 11.9 gm/dl (10.1-14.3); Lymphocytes # (Auto) 3.2 K/mm3 (1.2-5.4); Lymphocytes % (Auto) 43.8 % (13.4-35.0); Mean Corpuscular HGB Conc 34 % (30-34); Mean Corpuscular Volume 89 fl (79-97); Monocytes # (Auto) 0.6 K/mm3 (0.0-0.8); Platelet Count 304 K/mm3 (140-440); Red Blood Count 3.97 M/mm3 (3.65-5.03); Red Cell Distribution Width 14.8 % (13.2-15.2)
[2019-01-02 07:08] LABS: Alanine Aminotransferase 11 units/L (7-56); Albumin 3.6 g/dL (3.9-5); BUN/Creatinine Ratio 18; Blood Urea Nitrogen 9 mg/dL (7-17); Calcium 8.7 mg/dL (8.4-10.2); Hemolysis Index 11
--- NOTE | 2019-01-02 07:36 | History and Physical Report ---
CHIEF COMPLAINT: Chest pain. HISTORY OF PRESENT ILLNESS: An 83-year-old female with severe dementia, complains of chest pain. However, over the chest pain, not known. The patient is not drenching or expressing any distress. The patient is alert, but not oriented. The patient was admitted for atrial fibrillation, toxic metabolic encephalopathy, depression and malnutrition in the past. The patient is a very poor historian. Unable to answer questions. Does not complain of any weakness. No altered sensorium at this point. No fever or chills. PAST MEDICAL HISTORY: Significant for depression, anemia, peripheral neuropathy, hyperlipidemia, hypertension, and arrhythmias, atrial fibrillation. CURRENT MEDICATIONS: On the chart. PAST SURGICAL HISTORY: Right hip fracture repair in 05/2018. SOCIAL HISTORY: Does not smoke. No alcohol, no recreational drugs. FAMILY HISTORY: Hypertension. CURRENT MEDICATIONS: Amiodarone 200 mg twice a day, Celexa 20 mg once a day, gabapentin 400 mg twice a day and pravastatin 20 mg p.o. at bedtime. REVIEW OF SYSTEMS: Significant for supposed to have chest pain. Slightly altered sensorium, but otherwise no fever, no chills. Otherwise, review of systems is negative. PHYSICAL EXAMINATION: GENERAL: Elderly female, cooperative during examination, alert, but not oriented. VITAL SIGNS: Blood pressure is 146/54, temperature is 98.6, pulse is 60, sats are 96%. HEENT: Unremarkable. Pupils equal and reactive. NECK: Supple, no lymphadenopathy, no thyromegaly. LUNGS: Clear to auscultation and percussion. Good air entry. CARDIOVASCULAR: S1, S2 heard. No gallop, no murmur, no rub. Apical impulse in left fifth intercostal space and midclavicular line. ABDOMEN: Soft and benign. No hepatosplenomegaly. No guarding, no rigidity. Hernial orifices are normal. EXTREMITIES: Good pedal pulses. No pedal edema. LABORATORY DATA: Significant for potassium of 3.20. Hemoglobin and hematocrit are normal. BUN and creatinine is 10 and 0.5. Troponin is elevated at 0.037 and 0.061. Total creatine kinase is 190, cholesterol is 294, LDL cholesterol is 244. TSH is 4.26 and urine wbc's is 7. EKG shows left bundle-branch block and heart rate of about 67 per minute. Chest x-ray, no significant acute process. ASSESSMENT AND PLAN: 1. Chest pain, rule out myocardial infarction, chest pain protocol. Troponin is slightly elevated. We will get Cardiology consult. Lexiscan ordered. 2. Hypokalemia, supplemented. 3. Urinary tract infection, mild. I would wait for urine cultures and sensitivity. The patient initiated on Macrobid. No IV ceftriaxone at this point. 4. Depression. Continue Celexa. 5. Peripheral neuropathy. Continue gabapentin. 6. Arrhythmias. Continue amiodarone. The patient not on anticoagulation like Ronaldo, but given her age of 83 and tendency to fall, will stay away from anticoagulation. 7. Hypertension. Continue clonidine. 8. Deep venous thrombosis prophylaxis, Lovenox 30 mg subcutaneous daily. JOB# [id number] MORAIMA/SG
[2019-01-02] MEDS ORDERED: NON-FORMULARY (Quetiapine Fumarate [Seroquel] 50 MG) PO SCH (10:00)
--- NOTE | 2019-01-02 10:31 | Consultation ---
History of Present Illness Consult date: 01/02/19 Consult reason: elevated troponin History of present illness: 83 YO woman with dementia who was brought to ED due to reported chest pain. Patient is a poor historian due to h/o dementia. She reports she experienced chest heaviness but these symptoms have now resolved. She currently has no cardiac complaints. Cardiology was consulted because her troponin was minimally elevated. According to records, she has prior medical history of paroxysmal atrial fibrillation, htn, hyperlipidemia, and dementia ECG reveals sinus rhythm with LBBB which is unchanged from previous ECG. Past History Past Medical History: atrial fib, hypertension, hyperlipidemia, other (dementia) Social history: other (unable to obtain) Family history: other (unable to obtain) Medications and Allergies Allergies Allergy/AdvReac Type Severity Reaction Status Date / Time iodine Allergy Unknown Verified 08/03/16 14:13 NSAIDS (Non-Steroidal Allergy Unknown Verified 08/03/16 14:13 Anti-Inflamma Sulfa (Sulfonamide Allergy Unknown Verified 08/03/16 14:13 Antibiotics) sulfamethoxazole Allergy Unknown Verified 10/29/14 10:19 [From Bactrim] trimethoprim [From Bactrim] Allergy Unknown Verified 10/29/14 10:19 seafood Allergy Hives Uncoded 01/01/19 14:51 Home Medications Medication Instructions Recorded Confirmed Last Taken Type Aspirin [Aspirin BABY CHEW TAB] 81 mg PO HS 11/06/14 01/01/19 11/06/14 History Gabapentin [Neurontin] 400 mg PO BID 11/06/14 01/01/19 11/06/14 History Acetaminophen [Tylenol] 650 mg PO Q6HR PRN 01/01/19 01/01/19 Unknown History Bisacodyl [Dulcolax suppos] 10 mg DE QDAY PRN 01/01/19 01/01/19 Unknown History Dicyclomine [Bentyl] 10 mg PO BID 01/01/19 01/01/19 Unknown History Diphenoxylate HCl/Atropine 2 each PO BID PRN 01/01/19 01/01/19 Unknown History [Lomotil 2.5-0.025 mg Tablet] Docusate Sodium [Colace] 100 mg PO BID PRN 01/01/19 01/01/19 Unknown History HYDROcodone/APAP 5-325 [Nabb 1 - 2 each PO Q6HR PRN 01/01/19 01/01/19 Unknown History 5/325] Haloperidol [Haldol] 1 mg PO Q4H PRN 01/01/19 01/01/19 Unknown History Hyoscyamine Subl [Levsin Sl 0.125 0.125 mg SL Q4HR PRN 01/01/19 01/01/19 Unknown History TAB] Ibuprofen [Motrin] 800 mg PO Q6HR PRN 01/01/19 01/01/19 Unknown History Promethazine [Phenergan TAB] 25 mg PO Q6HR PRN 01/01/19 01/01/19 Unknown History Quetiapine Fumarate [SEROquel] 50 mg PO QAM 01/01/19 01/01/19 Unknown History clonazePAM [Clonazepam] 0.5 mg PO BID 01/01/19 01/01/19 Unknown History diphenhydrAMINE/ZINC 2% [Banophen 1 applic TP BID PRN 01/01/19 01/01/19 Unknown History Anti-Itch] Active Meds: Active Medications Acetaminophen (Tylenol) 650 mg PO Q4H PRN PRN Reason: Pain MILD(1-3)/Fever >100.5/DISLA Aspirin (Baby Aspirin) 81 mg PO HS [facility] Bisacodyl (Dulcolax) 10 mg DE QDAY PRN PRN Reason: Constipation Clonazepam (Klonopin) 0.5 mg PO BID [facility] Last Admin: 01/02/19 00:45 Dose: 0.5 mg Documented by: Dicyclomine HCl (Bentyl) 10 mg PO BID [facility] Diphenoxylate HCl/Atropine (Lomotil) 2 tab PO BID PRN PRN Reason: Diarrhea Docusate Sodium (Colace) 100 mg PO BID PRN PRN Reason: Constipation Famotidine (Pepcid) 20 mg PO BID [facility] Gabapentin (Neurontin) 400 mg PO BID [facility] Last Admin: 01/02/19 00:45 Dose: 400 mg Documented by: Haloperidol (Haldol) 1 mg PO Q4H PRN PRN Reason: Agitation Hydromorphone HCl (Dilaudid) 0.5 mg IV Q3H PRN PRN Reason: Pain , Severe (7-10) Hyoscyamine (Levsin Sl) 0.125 mg SL Q4HR PRN PRN Reason: Secretions Nitrofurantoin Macrocrystals (Macrobid) 100 mg PO Q12HR [facility] Last Admin: 01/02/19 00:59 Dose: 100 mg Documented by: Ondansetron HCl (Zofran) 4 mg IV Q8H PRN PRN Reason: Nausea And Vomiting Oxycodone/Acetaminophen (Percocet 5/325) 1 tab PO Q6H PRN PRN Reason: Pain, Moderate (4-6) Quetiapine Fumarate (Seroquel) 50 mg PO QAM [place] Sodium Chloride (Sodium Chloride Flush Syringe 10 Ml) 10 ml IV BID [place] Sodium Chloride (Sodium Chloride Flush Syringe 10 Ml) 10 ml IV PRN PRN PRN Reason: LINE FLUSH Review of Systems ROS unobtainable: due to mental status Physical Examination Vital Signs Pulse Resp BP Pulse Ox 68 14 161/73 100 01/01/19 11:04 01/01/19 11:04 01/01/19 11:04 01/01/19 11:04 General appearance: no acute distress Neck: Positive: neck supple Cardiac: Positive: Reg Rate and Rhythm Lungs: Positive: clear to auscultation Abdomen: Positive: Soft, Active Bowel Sounds Extremities: Absent: edema Results 01/02/19 05:47 01/02/19 05:47 Cardiac Enzymes 01/01/19 01/01/19 01/02/19 Range/Units 11:34 11:34 05:47 AST 26 23 (5-40) units/L CK-MB (CK-2) 5.2 H (0.0-4.0) ng/mL Coagulation 01/01/19 Range/Units 11:34 PT 14.3 (12.2-14.9) Sec. INR 1.05 (0.87-1.13) APTT 20.3 L (24.2-36.6) Sec. Lipids 01/01/19 Range/Units 11:34 Triglycerides 140 (2-149) mg/dL Cholesterol 294 H (50-199) mg/dL HDL Cholesterol 43 (40-59) mg/dL Cholesterol/HDL Ratio 6.83 % CBC 01/01/19 01/02/19 Range/Units 11:34 05:47 WBC 7.4 7.3 (4.5-11.0) K/mm3 RBC 4.18 3.97 (3.65-5.03) M/mm3 Hgb 12.8 11.9 (10.1-14.3) gm/dl Hct 37.2 35.4 (30.3-42.9) % Plt Count 334 304 (140-440) K/mm3 Lymph # 2.1 3.2 (1.2-5.4) K/mm3 [place] # 0.5 0.6 (0.0-0.8) K/mm3 Eos # 0.0 0.0 (0.0-0.4) K/mm3 Baso # 0.1 0.0 (0.0-0.1) K/mm3 Comprehensive Metabolic Panel 01/01/19 01/02/19 Range/Units 11:34 05:47 Sodium 138 140 (137-145) mmol/L Potassium 3.2 L 4.1 D (3.6-5.0) mmol/L Chloride 100.1 107.0 (98-107) mmol/L Carbon Dioxide 21 L 20 L (22-30) mmol/L BUN 10 9 (7-17) mg/dL Creatinine 0.5 L 0.5 L (0.7-1.2) mg/dL Glucose 109 H 91 (65-100) mg/dL Calcium 9.0 8.7 (8.4-10.2) mg/dL AST 26 23 (5-40) units/L ALT 12 11 (7-56) units/L Alkaline Phosphatase 93 87 (35-129) units/L Total Protein 6.4 5.9 L (6.3-8.2) g/dL Albumin 3.9 3.6 L (3.9-5) g/dL Assessment and Plan Minimal troponin elevation Dementia H/O Hypertension H/O Hyperlipidemia H/O paroxysmal atrial fibrillation Recommend: Will pursue conservative cardiac treatment for presumed CAD- patient is not currently a candidate for invasive cardiac procedures. Continue aspirin Add statin Add low dose metoprolol.
[2019-01-02] MEDS: SODIUM CHLORIDE FLUSH SYRINGE 10 ML IV SCH ×2 (10:50→21:32)
[2019-01-02] MEDS: BENTYL PO SCH ×2 (11:12→21:28)
[2019-01-02] MEDS: PEPCID PO SCH ×2 (11:13→21:29)
--- NOTE | 2019-01-02 14:08 | Progress Note ---
Assessment and Plan Assessment and plan: Chest pain with mildly elevated troponin level -Cardiology recommended conservative mgx UTI -On nitrofurantoin -Urine culture pending Atrial fib -HR controlled -cont Lopressor HTN -Controlled HLD, stable -On statin Dementia, stable -Continue home med Disp: for d/c when cleared by cardiology History Interval history: Pt stated that she feels better. Her chest heaviness has resolved Hospitalist Physical - Constitutional Vitals: Temp Pulse Resp BP Pulse Ox 98.1 F 78 22 138/54 95 01/02/19 04:10 01/02/19 05:00 01/02/19 04:10 01/02/19 04:10 01/02/19 04:10 General appearance: Present: no acute distress - EENT Eyes: Present: PERRL, EOM intact ENT: hearing intact, clear oral mucosa - Neck Neck: Present: supple - Respiratory Respiratory effort: normal Respiratory: bilateral: CTA - Cardiovascular Rhythm: regular Heart Sounds: Present: S1 & S2 - Extremities Extremities: No edema - Abdominal General gastrointestinal: soft, non-tender, non-distended, normal bowel sounds - Neurologic Neurologic: CNII-XII intact Results - Labs CBC & Chem 7: 01/02/19 05:47 01/02/19 05:47 Labs: Laboratory Last Values WBC 7.3 K/mm3 (4.5-11.0) 01/02/19 05:47 RBC 3.97 M/mm3 (3.65-5.03) 01/02/19 05:47 Hgb 11.9 gm/dl (10.1-14.3) 01/02/19 05:47 Hct 35.4 % (30.3-42.9) 01/02/19 05:47 MCV 89 fl (79-97) 01/02/19 05:47 MCH 30 pg (28-32) 01/02/19 05:47 MCHC 34 % (30-34) 01/02/19 05:47 RDW 14.8 % (13.2-15.2) 01/02/19 05:47 Plt Count 304 K/mm3 (140-440) 01/02/19 05:47 Lymph % (Auto) 43.8 % (13.4-35.0) H 01/02/19 05:47 [place] % (Auto) 8.0 % (0.0-7.3) H 01/02/19 05:47 Eos % (Auto) 0.6 % (0.0-4.3) 01/02/19 05:47 Baso % (Auto) 0.6 % (0.0-1.8) 01/02/19 05:47 Lymph # 3.2 K/mm3 (1.2-5.4) 01/02/19 05:47 [place] # 0.6 K/mm3 (0.0-0.8) 01/02/19 05:47 Eos # 0.0 K/mm3 (0.0-0.4) 01/02/19 05:47 Baso # 0.0 K/mm3 (0.0-0.1) 01/02/19 05:47 Seg Neutrophils % 47.0 % (40.0-70.0) 01/02/19 05:47 Seg Neutrophils # 3.4 K/mm3 (1.8-7.7) 01/02/19 05:47 PT 14.3 Sec. (12.2-14.9) 01/01/19 11:34 INR 1.05 (0.87-1.13) 01/01/19 11:34 APTT 20.3 Sec. (24.2-36.6) L 01/01/19 11:34 Thrombin Time 15.7 Sec. (15.1-19.6) 01/01/19 11:34 Sodium 140 mmol/L (137-145) 01/02/19 05:47 Potassium 4.1 mmol/L (3.6-5.0) D 01/02/19 05:47 Chloride 107.0 mmol/L (98-107) 01/02/19 05:47 Carbon Dioxide 20 mmol/L (22-30) L 01/02/19 05:47 Anion Gap 17 mmol/L 01/02/19 05:47 BUN 9 mg/dL (7-17) 01/02/19 05:47 Creatinine 0.5 mg/dL (0.7-1.2) L 01/02/19 05:47 Estimated GFR > 60 ml/min 01/02/19 05:47 BUN/Creatinine Ratio 18 % 01/02/19 05:47 Glucose 91 mg/dL (65-100) 01/02/19 05:47 Hemoglobin A1c 5.3 % (4-6) 01/02/19 00:02 Lactic Acid 1.10 mmol/L (0.7-2.0) 01/01/19 11:34 Calcium 8.7 mg/dL (8.4-10.2) 01/02/19 05:47 Magnesium 1.80 mg/dL (1.7-2.3) 01/01/19 11:34 Total Bilirubin 0.50 mg/dL (0.1-1.2) 01/02/19 05:47 AST 23 units/L (5-40) 01/02/19 05:47 ALT 11 units/L (7-56) 01/02/19 05:47 Alkaline Phosphatase 87 units/L (35-129) 01/02/19 05:47 Ammonia 28.0 umol/L (25-60) 01/01/19 12:29 Total Creatine Kinase 190 units/L (30-135) H 01/01/19 11:34 CK-MB (CK-2) 5.2 ng/mL (0.0-4.0) H 01/01/19 11:34 CK-MB (CK-2) Rel Index 2.7 (0-4) 01/01/19 11:34 Troponin T 0.095 ng/mL (0.00-0.029) H 01/02/19 05:47 Total Protein 5.9 g/dL (6.3-8.2) L 01/02/19 05:47 Albumin 3.6 g/dL (3.9-5) L 01/02/19 05:47 Albumin/Globulin Ratio 1.6 % 01/02/19 05:47 Triglycerides 140 mg/dL (2-149) 01/01/19 11:34 Cholesterol 294 mg/dL (50-199) H 01/01/19 11:34 LDL Cholesterol Direct 244 mg/dL (50-130) H 01/01/19 11:34 HDL Cholesterol 43 mg/dL (40-59) 01/01/19 11:34 Cholesterol/HDL Ratio 6.83 % 01/01/19 11:34 TSH 4.260 mlU/mL (0.270-4.200) H 01/01/19 11:34 Urine Color Yellow (Yellow) 01/01/19 11:53 Urine Turbidity Cloudy (Clear) 01/01/19 11:53 Urine pH 6.0 (5.0-7.0) 01/01/19 11:53 Ur Specific [place] 1.026 (1.003-1.030) 01/01/19 11:53 Urine Protein 100 mg/dl mg/dL (Negative) 01/01/19 11:53 Urine Glucose (UA) Neg mg/dL (Negative) 01/01/19 11:53 Urine Ketones 80 mg/dL (Negative) 01/01/19 11:53 Urine Blood Neg (Negative) 01/01/19 11:53 Urine Nitrite Neg (Negative) 01/01/19 11:53 Urine Bilirubin Neg (Negative) 01/01/19 11:53 Urine Urobilinogen 4.0 mg/dL (<2.0) 01/01/19 11:53 Ur Leukocyte Esterase Neg (Negative) 01/01/19 11:53 Urine WBC (Auto) 7.0 /HPF (0.0-6.0) H 01/01/19 11:53 Urine RBC (Auto) 8.0 /HPF (0.0-6.0) 01/01/19 11:53 U Epithel Cells (Auto) 3.0 /HPF (0-13.0) 01/01/19 11:53 Urine Bacteria (Auto) 2+ /HPF (Negative) 01/01/19 11:53 Urine Mucus 3+ /HPF 01/01/19 11:53 Salicylates 0.6 mg/dL (2.8-20.0) L 01/01/19 11:34 Urine Opiates Screen Presumptive negative 01/01/19 11:53 Urine Methadone Screen Presumptive negative 01/01/19 11:53 Acetaminophen < 5.0 ug/mL (10.0-30.0) L 01/01/19 11:34 Ur Barbiturates Screen Presumptive negative 01/01/19 11:53 Ur Phencyclidine Scrn Presumptive negative 01/01/19 11:53 Ur Amphetamines Screen Presumptive negative 01/01/19 11:53 U Benzodiazepines Scrn Presumptive negative 01/01/19 11:53 Urine Cocaine Screen Presumptive negative 01/01/19 11:53 U Marijuana (THC) Screen Presumptive negative 01/01/19 11:53 Drugs of Abuse Note Disclamer 01/01/19 11:53 Plasma/Serum Alcohol < 0.01 % (0-0.07) 01/01/19 11:34
[2019-01-02] MEDS: LOPRESSOR PO SCH ×2 (14:56→21:31)
[2019-01-02] MEDS: BABY ASPIRIN PO SCH (21:30)
[2019-01-03] MEDS: NEURONTIN PO SCH ×3 (09:49→21:54)
[2019-01-03] MEDS: LOPRESSOR PO SCH ×2 (09:49→21:56)
[2019-01-03] MEDS: PEPCID PO SCH ×2 (09:50→21:54)
[2019-01-03] MEDS: BENTYL PO SCH ×2 (09:51→21:55)
[2019-01-03] MEDS: MACROBID PO SCH ×2 (09:51→21:55)
--- NOTE | 2019-01-03 10:58 | Progress Note ---
Assessment and Plan Minimal troponin elevation No recurrence of chest pain Dementia H/O Hypertension H/O Hyperlipidemia H/O paroxysmal atrial fibrillation Recommend: Will pursue conservative cardiac treatment for presumed CAD- patient is not currently a candidate for invasive cardiac procedures. Continue current medical therapy. Subjective Date of service: 01/03/19 Interval history: Pt has not had any further chest discomfort. She reports she is having numbness in both legs. Objective Vital Signs Temp Pulse Resp BP Pulse Ox 01/03/19 07:42 98.0 F 18 134/56 01/03/19 06:00 62 01/03/19 03:59 98.0 F 50 L 18 137/54 95 01/03/19 00:02 98.0 F 50 L 18 113/37 97 01/02/19 21:00 66 01/02/19 20:07 98.0 F 64 20 136/53 95 01/02/19 16:44 98.0 F 18 135/52 01/02/19 13:00 61 01/02/19 12:01 98.2 F 18 110/61 - Physical Examination Neck: Positive: neck supple Cardiac: Positive: Reg Rate and Rhythm Lungs: Positive: clear to auscultation Abdomen: Positive: Soft, Active Bowel Sounds Extremities: Absent: edema
[2019-01-03] MEDS: SODIUM CHLORIDE FLUSH SYRINGE 10 ML IV SCH ×2 (11:55→21:55)
--- NOTE | 2019-01-03 13:54 | Progress Note ---
Assessment and Plan Assessment and plan: Chest pain with mildly elevated troponin level -Cardiology recommended conservative mgx UTI -On nitrofurantoin -Urine culture neg Atrial fib -HR controlled this am. However, per pt's front desk monitor, she was bradycardic overnight in the 40"s -on Lopressor per cardiology HTN -Controlled HLD, stable -On statin Dementia, stable -Continue home meds Chronic peripheral neuropathy -Her home gabapentin adjusted -PT consulted Disp: for possible d/c back to the [facility] in am if clinically stable History Interval history: Pt complained of bilateral leg numbness Hospitalist Physical - Constitutional Vitals: Temp Pulse Resp BP Pulse Ox 98.2 F 62 18 121/46 95 01/03/19 12:52 01/03/19 06:00 01/03/19 12:52 01/03/19 12:52 01/03/19 03:59 General appearance: Present: no acute distress - EENT Eyes: Present: PERRL, EOM intact ENT: hearing intact, clear oral mucosa - Neck Neck: Present: supple - Respiratory Respiratory effort: normal Respiratory: bilateral: CTA - Cardiovascular Rhythm: regular Heart Sounds: Present: S1 & S2 - Extremities Extremities: No edema - Abdominal General gastrointestinal: soft, non-tender, non-distended, normal bowel sounds - Neurologic Neurologic: moves all extremities Results - Labs CBC & Chem 7: 01/02/19 05:47 01/02/19 05:47 Labs: Laboratory Last Values WBC 7.3 K/mm3 (4.5-11.0) 01/02/19 05:47 RBC 3.97 M/mm3 (3.65-5.03) 01/02/19 05:47 Hgb 11.9 gm/dl (10.1-14.3) 01/02/19 05:47 Hct 35.4 % (30.3-42.9) 01/02/19 05:47 MCV 89 fl (79-97) 01/02/19 05:47 MCH 30 pg (28-32) 01/02/19 05:47 MCHC 34 % (30-34) 01/02/19 05:47 RDW 14.8 % (13.2-15.2) 01/02/19 05:47 Plt Count 304 K/mm3 (140-440) 01/02/19 05:47 Lymph % (Auto) 43.8 % (13.4-35.0) H 01/02/19 05:47 [place] % (Auto) 8.0 % (0.0-7.3) H 01/02/19 05:47 Eos % (Auto) 0.6 % (0.0-4.3) 01/02/19 05:47 Baso % (Auto) 0.6 % (0.0-1.8) 01/02/19 05:47 Lymph # 3.2 K/mm3 (1.2-5.4) 01/02/19 05:47 [place] # 0.6 K/mm3 (0.0-0.8) 01/02/19 05:47 Eos # 0.0 K/mm3 (0.0-0.4) 01/02/19 05:47 Baso # 0.0 K/mm3 (0.0-0.1) 01/02/19 05:47 Seg Neutrophils % 47.0 % (40.0-70.0) 01/02/19 05:47 Seg Neutrophils # 3.4 K/mm3 (1.8-7.7) 01/02/19 05:47 PT 14.3 Sec. (12.2-14.9) 01/01/19 11:34 INR 1.05 (0.87-1.13) 01/01/19 11:34 APTT 20.3 Sec. (24.2-36.6) L 01/01/19 11:34 Thrombin Time 15.7 Sec. (15.1-19.6) 01/01/19 11:34 Sodium 140 mmol/L (137-145) 01/02/19 05:47 Potassium 4.1 mmol/L (3.6-5.0) D 01/02/19 05:47 Chloride 107.0 mmol/L (98-107) 01/02/19 05:47 Carbon Dioxide 20 mmol/L (22-30) L 01/02/19 05:47 Anion Gap 17 mmol/L 01/02/19 05:47 BUN 9 mg/dL (7-17) 01/02/19 05:47 Creatinine 0.5 mg/dL (0.7-1.2) L 01/02/19 05:47 Estimated GFR > 60 ml/min 01/02/19 05:47 BUN/Creatinine Ratio 18 % 01/02/19 05:47 Glucose 91 mg/dL (65-100) 01/02/19 05:47 Hemoglobin A1c 5.3 % (4-6) 01/02/19 00:02 Lactic Acid 1.10 mmol/L (0.7-2.0) 01/01/19 11:34 Calcium 8.7 mg/dL (8.4-10.2) 01/02/19 05:47 Magnesium 1.80 mg/dL (1.7-2.3) 01/01/19 11:34 Total Bilirubin 0.50 mg/dL (0.1-1.2) 01/02/19 05:47 AST 23 units/L (5-40) 01/02/19 05:47 ALT 11 units/L (7-56) 01/02/19 05:47 Alkaline Phosphatase 87 units/L (35-129) 01/02/19 05:47 Ammonia 28.0 umol/L (25-60) 01/01/19 12:29 Total Creatine Kinase 190 units/L (30-135) H 01/01/19 11:34 CK-MB (CK-2) 5.2 ng/mL (0.0-4.0) H 01/01/19 11:34 CK-MB (CK-2) Rel Index 2.7 (0-4) 01/01/19 11:34 Troponin T 0.095 ng/mL (0.00-0.029) H 01/02/19 05:47 Total Protein 5.9 g/dL (6.3-8.2) L 01/02/19 05:47 Albumin 3.6 g/dL (3.9-5) L 01/02/19 05:47 Albumin/Globulin Ratio 1.6 % 01/02/19 05:47 Triglycerides 140 mg/dL (2-149) 01/01/19 11:34 Cholesterol 294 mg/dL (50-199) H 01/01/19 11:34 LDL Cholesterol Direct 244 mg/dL (50-130) H 01/01/19 11:34 HDL Cholesterol 43 mg/dL (40-59) 01/01/19 11:34 Cholesterol/HDL Ratio 6.83 % 01/01/19 11:34 TSH 4.260 mlU/mL (0.270-4.200) H 01/01/19 11:34 Urine Color Yellow (Yellow) 01/01/19 11:53 Urine Turbidity Cloudy (Clear) 01/01/19 11:53 Urine pH 6.0 (5.0-7.0) 01/01/19 11:53 Ur Specific [place] 1.026 (1.003-1.030) 01/01/19 11:53 Urine Protein 100 mg/dl mg/dL (Negative) 01/01/19 11:53 Urine Glucose (UA) Neg mg/dL (Negative) 01/01/19 11:53 Urine Ketones 80 mg/dL (Negative) 01/01/19 11:53 Urine Blood Neg (Negative) 01/01/19 11:53 Urine Nitrite Neg (Negative) 01/01/19 11:53 Urine Bilirubin Neg (Negative) 01/01/19 11:53 Urine Urobilinogen 4.0 mg/dL (<2.0) 01/01/19 11:53 Ur Leukocyte Esterase Neg (Negative) 01/01/19 11:53 Urine WBC (Auto) 7.0 /HPF (0.0-6.0) H 01/01/19 11:53 Urine RBC (Auto) 8.0 /HPF (0.0-6.0) 01/01/19 11:53 U Epithel Cells (Auto) 3.0 /HPF (0-13.0) 01/01/19 11:53 Urine Bacteria (Auto) 2+ /HPF (Negative) 01/01/19 11:53 Urine Mucus 3+ /HPF 01/01/19 11:53 Salicylates 0.6 mg/dL (2.8-20.0) L 01/01/19 11:34 Urine Opiates Screen Presumptive negative 01/01/19 11:53 Urine Methadone Screen Presumptive negative 01/01/19 11:53 Acetaminophen < 5.0 ug/mL (10.0-30.0) L 01/01/19 11:34 Ur Barbiturates Screen Presumptive negative 01/01/19 11:53 Ur Phencyclidine Scrn Presumptive negative 01/01/19 11:53 Ur Amphetamines Screen Presumptive negative 01/01/19 11:53 U Benzodiazepines Scrn Presumptive negative 01/01/19 11:53 Urine Cocaine Screen Presumptive negative 01/01/19 11:53 U Marijuana (THC) Screen Presumptive negative 01/01/19 11:53 Drugs of Abuse Note Disclamer 01/01/19 11:53 Plasma/Serum Alcohol < 0.01 % (0-0.07) 01/01/19 11:34
[2019-01-03] MEDS: BABY ASPIRIN PO SCH (21:55)
[2019-01-04] MEDS: NEURONTIN PO SCH ×2 (05:34→15:40)
--- NOTE | 2019-01-04 09:53 | Progress Note ---
<[email or web address] - Last Filed: 01/04/19 09:50> Assessment and Plan Minimal troponin elevation No recurrence of chest pain Dementia H/O Hypertension H/O Hyperlipidemia H/O paroxysmal atrial fibrillation stable sinus rhythm this admission Recommend: Patient is not currently a candidate for invasive cardiac procedures. Conservative cardiac treatment for presumed CAD. Subjective Date of service: 01/04/19 Interval history: Patient is resting in bed comfortably. She denies chest pain and shortness of breath. She complains of right lower extremity numbness. Objective Vital Signs Temp Pulse Resp BP Pulse Ox 01/04/19 08:22 68 18 141/58 96 01/04/19 08:21 97.7 F 01/04/19 06:00 50 L 01/04/19 03:51 98.2 F 52 L 18 136/47 94 01/03/19 23:06 98.2 F 59 L 20 144/57 97 01/03/19 22:00 53 L 01/03/19 21:56 47 L 130/46 01/03/19 21:36 98.6 F 51 L 18 130/46 96 01/03/19 19:16 97.6 F 47 L 20 113/30 95 01/03/19 16:25 97.2 F L 92 H 16 87/34 78 L 01/03/19 14:00 54 L 01/03/19 12:52 98.2 F 18 121/46 - Physical Examination General: No Apparent Distress HEENT: Positive: PERRL Neck: Positive: neck supple Cardiac: Positive: Reg Rate and Rhythm Lungs: Positive: Decreased Breath Sounds Abdomen: Positive: Soft, Active Bowel Sounds Extremities: Absent: edema <TAVIA LIRIANO - Last Filed: 01/04/19 15:48> Assessment and Plan I have seen and evaluated the patient, and agree with the assessment and plan. continue medical therapy for HTN, HLD, and atrial fibrillation. Objective Vital Signs Temp Pulse Resp BP Pulse Ox 01/04/19 12:28 97.8 F 01/04/19 12:27 65 18 109/45 96 01/04/19 11:44 67 01/04/19 10:02 68 141/58 01/04/19 08:22 68 18 141/58 96 01/04/19 08:21 97.7 F 01/04/19 06:00 50 L 01/04/19 03:51 98.2 F 52 L 18 136/47 94 01/03/19 23:06 98.2 F 59 L 20 144/57 97 01/03/19 22:00 53 L 01/03/19 21:56 47 L 130/46 01/03/19 21:36 98.6 F 51 L 18 130/46 96 01/03/19 19:16 97.6 F 47 L 20 113/30 95 01/03/19 16:25 97.2 F L 92 H 16 87/34 78 L
[2019-01-04] MEDS: PEPCID PO SCH (10:02)
[2019-01-04] MEDS: LOPRESSOR PO SCH (10:02)
[2019-01-04] MEDS: MACROBID PO SCH (10:03)
[2019-01-04] MEDS: SODIUM CHLORIDE FLUSH SYRINGE 10 ML IV SCH (10:03)
[2019-01-04] MEDS: BENTYL PO SCH (10:03)
--- NOTE | 2019-01-04 10:52 | Discharge Summary ---
Providers - Providers Date of Admission: 01/01/19 12:25 Attending physician: SAUL WIGGINS MD 01/02/19 06:20 Consult to Physician [CONS] Routine Comment: Consulting Provider: CINDI CAT Physician Instructions: Reason For Exam: Chest pain +Positive Troponins 01/03/19 13:49 Physical Therapy Evaluation and Treat [CONS] Routine Comment: Reason For Exam: generalized weakness Primary care physician: MAXIM MACK Hospitalization Reason for admission: chest pain Condition: Stable Hospital course: Patient is a 83-year-old female who has a known history of dementia, presented to the ED with complaints of chest pain and also per ED documentation was who is currently not answering open-ended questions, but will answer "yes", " no" to close ended questions. Review of records shows prior admissions for atrial fibrillation, toxic metabolic encephalopathy, depression and malnutrition. In the ED patient was considered not a candidate for TPA due to unknown time frame and also ongoing dementia. Urinalysis suggests possible urinary tract infection, she may have a right-sided pneumonia, she has a low-grade troponin, in the context of normal renal function, and she is also found to be hypokalemic. Patient was treated for both mentioned infection. During hospitalization she reported numbness in the legs and was preoccupied by hx of family member having amputation. Examination did not reveal any ischemic limb. motor strength was 5/5 cardiology saw the patient and recommended conservative management Urine culture was negative Atypical Chest pain UTI Atrial fib with slow ventricular response HTN HLD, stable Dementia, stable Chronic peripheral neuropathy Disposition: [id number] [facility] Time spent for discharge: 35 mins Core Measure Documentation - Palliative Care Palliative Care/ Comfort Measures: Not Applicable - Core Measures Any of the following diagnoses?: none Exam - Physical Exam Narrative exam: General appearance: Present: no acute distress - EENT Eyes: Present: PERRL, EOM intact ENT: hearing intact, clear oral mucosa - Neck Neck: Present: supple - Respiratory Respiratory effort: normal Respiratory: bilateral: CTA - Cardiovascular Rhythm: regular Heart Sounds: Present: S1 & S2 - Extremities Extremities: No edema - Abdominal General gastrointestinal: soft, non-tender, non-distended, normal bowel sounds - Neurologic Neurologic: moves all extremities, no motor strength or sensory deficit - Constitutional Vitals: Temp Pulse Resp BP Pulse Ox 97.7 F 68 18 141/58 96 01/04/19 08:21 01/04/19 10:02 01/04/19 08:22 01/04/19 10:02 01/04/19 08:22 Plan Activity: advance as tolerated, fall precautions Diet: low cholesterol Special Instructions: record daily BP diary, physical therapy, occupational therapy Follow up with: MAXIM MACK MD [Primary Care Provider] - 3-5 Days CINDI CAT MD [Staff Physician] - 7 Days Prescriptions: AtorvaSTATin [Lipitor] 20 mg PO QHS #30 tablet Metoprolol [Lopressor TAB] 12.5 mg PO BID #60 tablet
[2019-01-04 12:28] VITALS: BP 109/45
== END 2019-01-04 16:45 | DRG 91 ==
LOC: ED 10:45 → 4A 12:25
PROVIDERS: ADMIT Internal Medicine; ATTEND Internal Medicine
DX: G92 Toxic encephalopathy (principal); J18.9 Pneumonia, unspecified organism; N39.0 Urinary tract infection, site not specified; E87.6 Hypokalemia; I44.7 Left bundle-branch block, unspecified; F32.9 Major depressive disorder, single episode, unspecified; E78.00 Pure hypercholesterolemia, unspecified; F03.90 Unspecified dementia, unspecified severity, without behavioral disturbance, psychotic disturbance, mood disturbance, and anxiety; I48.91 Unspecified atrial fibrillation; K21.9 Gastro-esophageal reflux disease without esophagitis; F10.21 Alcohol dependence, in remission; G62.9 Polyneuropathy, unspecified; Z88.2 Allergy status to sulfonamides; Z82.49 Family history of ischemic heart disease and other diseases of the circulatory system; Z88.8 Allergy status to other drugs, medicaments and biological substances; Z91.041 Radiographic dye allergy status; Z91.013 Allergy to seafood; Z79.82 Long term (current) use of aspirin; Z79.899 Other long term (current) drug therapy
CPT/HCPCS: 36415; 70450; 71045; 80053; 80061; 80307; 80320; 81001; 82140; 82550; 82553; 82962; 83036; 83735; 84443; 84484; 85025; 85610; 85670; 85730; 87086; 93005; 93010; G0378; A9270-GY; G0480; J0696; J3480; J7040

== ENCOUNTER 2019-07-31 08:57 | Emergency (ER) | payer MEDICARE ==
--- NOTE | 2019-07-31 09:58 | Emergency Department Report ---
ED General Adult HPI - General Chief complaint: Abdominal Pain Stated complaint: Time Seen by Provider: 07/31/19 09:26 Source: patient, EMS Mode of arrival: Stretcher Limitations: No Limitations, Other - History of Present Illness Initial comments: 83-year-old female with history of anxiety, neuropathy, presents from assisted living facility to ED with complaint of constipation 5 days and urinary frequency since last night. Patient reports fever and chills. Patient denies abdominal pain, nausea, vomiting, diarrhea. Location: abdomen Consistency: constant Improves with: none Worsens with: none Associated Symptoms: fever/chills. denies: chest pain, cough, nausea/vomiting, shortness of breath - Related Data Home Medications Medication Instructions Recorded Confirmed Last Taken Aspirin [Aspirin BABY CHEW TAB] 81 mg PO HS 11/06/14 01/01/19 11/06/14 Gabapentin [Neurontin] 400 mg PO BID 11/06/14 01/01/19 11/06/14 Acetaminophen [Acetaminophen TAB] 650 mg PO Q6HR PRN 01/01/19 01/01/19 Unknown Bisacodyl [Dulcolax suppos] 10 mg ID QDAY PRN 01/01/19 01/01/19 Unknown Dicyclomine [Bentyl] 10 mg PO BID 01/01/19 01/01/19 Unknown Diphenoxylate HCl/Atropine 2 each PO BID PRN 01/01/19 01/01/19 Unknown [Lomotil 2.5-0.025 mg Tablet] Docusate Sodium [Colace CAP] 100 mg PO BID PRN 01/01/19 01/01/19 Unknown Haloperidol [Haldol] 1 mg PO Q4H PRN 01/01/19 01/01/19 Unknown Hyoscyamine Subl [Levsin Sl 0.125 0.125 mg SL Q4HR PRN 01/01/19 01/01/19 Unknown TAB] Ibuprofen [Motrin 800 MG tab] 800 mg PO Q6HR PRN 01/01/19 01/01/19 Unknown Promethazine [Phenergan] 25 mg PO Q6HR PRN 01/01/19 01/01/19 Unknown Quetiapine Fumarate [SEROquel] 50 mg PO QAM 01/01/19 01/01/19 Unknown clonazePAM [Clonazepam] 0.5 mg PO BID 01/01/19 01/01/19 Unknown diphenhydrAMINE/ZINC 2% [Banophen 1 applic TP BID PRN 01/01/19 01/01/19 Unknown Anti-Itch] Previous Rx's Medication Instructions Recorded Last Taken Type AtorvaSTATin [Lipitor] 20 mg PO QHS #30 tablet 01/04/19 Unknown Rx Metoprolol [Lopressor TAB] 12.5 mg PO BID #60 tablet 01/04/19 Unknown Rx Nitrofurantoin Fentress/M-Cryst 100 mg PO Q12HR 7 Days #14 capsule 07/31/19 Unknown Rx [Macrobid CAP] Allergies Allergy/AdvReac Type Severity Reaction Status Date / Time iodine Allergy Unknown Verified 08/03/16 14:13 NSAIDS (Non-Steroidal Allergy Unknown Verified 08/03/16 14:13 Anti-Inflamma Sulfa (Sulfonamide Allergy Unknown Verified 08/03/16 14:13 Antibiotics) sulfamethoxazole Allergy Unknown Verified 10/29/14 10:19 [From Bactrim] trimethoprim [From Bactrim] Allergy Unknown Verified 10/29/14 10:19 seafood Allergy Hives Uncoded 01/01/19 14:51 ED Review of Systems ROS: Stated complaint: Other details as noted in HPI Comment: All other systems reviewed and negative Constitutional: chills, fever Respiratory: denies: cough, shortness of breath Cardiovascular: denies: chest pain Gastrointestinal: constipation. denies: abdominal pain, nausea, vomiting, diarrhea Genitourinary: frequency ED Past Medical Hx - Past Medical History Previous Medical History?: Yes Hx Hypertension: Yes Hx GERD: Yes Hx Psychiatric Treatment: Yes (depression, anxiety) Hx COPD: Yes Hx Dementia: Yes Hx HIV: No Additional medical history: a-fib, leg numbness - Surgical History Past Surgical History?: No Additional Surgical History: R hip fx repair in May - Social History Smoking Status: Never Smoker Substance Use Type: None - Medications Home Medications: Home Medications Medication Instructions Recorded Confirmed Last Taken Type Aspirin [Aspirin BABY CHEW TAB] 81 mg PO HS 11/06/14 01/01/19 11/06/14 History Gabapentin [Neurontin] 400 mg PO BID 11/06/14 01/01/19 11/06/14 History Acetaminophen [Acetaminophen TAB] 650 mg PO Q6HR PRN 01/01/19 01/01/19 Unknown History Bisacodyl [Dulcolax suppos] 10 mg ID QDAY PRN 01/01/19 01/01/19 Unknown History Dicyclomine [Bentyl] 10 mg PO BID 01/01/19 01/01/19 Unknown History Diphenoxylate HCl/Atropine 2 each PO BID PRN 01/01/19 01/01/19 Unknown History [Lomotil 2.5-0.025 mg Tablet] Docusate Sodium [Colace CAP] 100 mg PO BID PRN 01/01/19 01/01/19 Unknown History Haloperidol [Haldol] 1 mg PO Q4H PRN 01/01/19 01/01/19 Unknown History Hyoscyamine Subl [Levsin Sl 0.125 0.125 mg SL Q4HR PRN 01/01/19 01/01/19 Unknown History TAB] Ibuprofen [Motrin 800 MG tab] 800 mg PO Q6HR PRN 01/01/19 01/01/19 Unknown History Promethazine [Phenergan] 25 mg PO Q6HR PRN 01/01/19 01/01/19 Unknown History Quetiapine Fumarate [SEROquel] 50 mg PO QAM 01/01/19 01/01/19 Unknown History clonazePAM [Clonazepam] 0.5 mg PO BID 01/01/19 01/01/19 Unknown History diphenhydrAMINE/ZINC 2% [Banophen 1 applic TP BID PRN 01/01/19 01/01/19 Unknown History Anti-Itch] AtorvaSTATin [Lipitor] 20 mg PO QHS #30 tablet 01/04/19 Unknown Rx Metoprolol [Lopressor TAB] 12.5 mg PO BID #60 tablet 01/04/19 Unknown Rx Nitrofurantoin Fentress/M-Cryst 100 mg PO Q12HR 7 Days #14 capsule 07/31/19 Unknown Rx [Macrobid CAP] ED Physical Exam - General Limitations: No Limitations, Other General appearance: alert, in no apparent distress - Head Head exam: Present: atraumatic, normocephalic - Eye Eye exam: Present: normal appearance, PERRL, EOMI - ENT ENT exam: Present: mucous membranes moist - Neck Neck exam: Present: normal inspection - Respiratory Respiratory exam: Present: normal lung sounds bilaterally. Absent: respiratory distress - Cardiovascular Cardiovascular Exam: Present: regular rate, normal rhythm - GI/Abdominal GI/Abdominal exam: Present: soft. Absent: distended, tenderness - Extremities Exam Extremities exam: Present: normal inspection - Neurological Exam Neurological exam: Present: alert, oriented X3 - Psychiatric Psychiatric exam: Present: normal affect, normal mood - Skin Skin exam: Present: warm, dry, intact, normal color ED Course Vital Signs 07/31/19 07/31/19 07/31/19 09:13 09:15 09:30 Temperature 97.6 F Pulse Rate 66 61 Respiratory 13 15 Rate Blood Pressure 166/67 136/48 O2 Sat by Pulse 98 98 97 Oximetry 07/31/19 07/31/19 07/31/19 10:01 11:00 11:45 Temperature Pulse Rate 63 65 70 Respiratory 13 12 17 Rate Blood Pressure 181/64 157/62 160/61 O2 Sat by Pulse 97 97 99 Oximetry 07/31/19 07/31/19 11:54 12:01 Temperature 97.6 F Pulse Rate 66 68 Respiratory 15 16 Rate Blood Pressure 160/61 O2 Sat by Pulse 100 Oximetry ED Medical Decision Making - Lab Data Result diagrams: 07/31/19 09:52 07/31/19 09:52 - Radiology Data Radiology results: report reviewed, image reviewed - Medical Decision Making 83 yo F with UTI and constipation. No evidence of obstruction on xray. Vitals normal. Abdomen is benign. Labs are normal. Antibiotic prescription given. Will discharge at this time. Outpt f/u advised. Return precautions given. - Differential Diagnosis UTI, constipation, SBO Critical care attestation.: If time is entered above; I have spent that time in minutes in the direct care of this critically ill patient, excluding procedure time. ED Disposition Clinical Impression: Constipation, UTI (urinary tract infection) Disposition: TO HOME OR SELFCARE Is pt being admited?: No Condition: Stable Instructions: Constipation (ED), Urinary Tract Infection in Women (ED), High Fiber Diet (ED) Prescriptions: Nitrofurantoin Fentress/M-Cryst [Macrobid CAP] 100 mg PO Q12HR 7 Days #14 capsule Referrals: VINCENT GARCIA MD [Primary Care Provider] - 3-5 Days Time of Disposition: 11:23
[2019-07-31 10:06] LABS: Basophils % (Auto) 0.9 % (0.0-1.8); Eosinophils % (Auto) 0.6 % (0.0-4.3); Hematocrit 33.2 % (30.3-42.9); Hemoglobin 11.5 gm/dl (10.1-14.3); Lymphocytes # (Auto) 1.7 K/mm3 (1.2-5.4); Lymphocytes % (Auto) 31.8 % (13.4-35.0); Mean Corpuscular HGB Conc 35 % (30-34); Mean Corpuscular Volume 90 fl (79-97); Monocytes # (Auto) 0.4 K/mm3 (0.0-0.8); Platelet Count 256 K/mm3 (140-440); Red Blood Count 3.67 M/mm3 (3.65-5.03); Red Cell Distribution Width 13.9 % (13.2-15.2)
[2019-07-31 10:22] LABS: Alanine Aminotransferase 6 units/L (7-56); Albumin 3.7 g/dL (3.9-5); BUN/Creatinine Ratio 15; Blood Urea Nitrogen 9 mg/dL (7-17); Calcium 8.9 mg/dL (8.4-10.2); Hemolysis Index 6
[2019-07-31 10:32] LABS: Bilirubin,Direct < 0.2 mg/dL (0-0.2)
[2019-07-31 10:39] LABS: Bilirubin,Urine NEG (Negative); Blood,Urine NEG (Negative); Color,Urine Yellow (Yellow); Mucus,Urine FEW /HPF; Protein,Urine <15 mg/dL mg/dL (Negative); Urobilinogen,Urine < 2.0 mg/dL (<2.0)
--- NOTE | 2019-07-31 11:04 | XRay Report ---
ABDOMEN 3 VIEW(S) INDICATION: Constipation. Urinary frequency. Night sweats. COMPARISON: None available. FINDINGS: Bowel gas pattern: No dilated bowel loops are seen. Scattered gas is seen throughout the colon with a moderate amount of stool. Free air: None seen. Stones: None seen. Chest: No acute findings. Bilateral interstitial prominence likely reflects chronic interstitial lung disease. Calcified granulomas are noted along the left upper lobe. Additional Findings: There is generalized moderate to severe atherosclerosis. IMPRESSION: 1. No acute abnormality of the abdomen. 2. Additional findings as above. Signer Name: Elpidio Guerra MD Signed: 07/31/2019 10:59 AM Workstation Name: [id number]
[2019-07-31] MEDS ORDERED: NITROFURANTOIN MONOHYD/M-CRYST 100 MG CAP PO ONE (11:23)
[2019-07-31 12:13] VITALS: BP 160/61
== END 2019-07-31 12:30 | disposition home or self-care (01) ==
LOC: ED 08:57
DX: N39.0 Urinary tract infection, site not specified (principal); K59.00 Constipation, unspecified; F41.9 Anxiety disorder, unspecified; I10 Essential (primary) hypertension; K21.9 Gastro-esophageal reflux disease without esophagitis; F32.9 Major depressive disorder, single episode, unspecified; J44.9 Chronic obstructive pulmonary disease, unspecified; Z98.890 Other specified postprocedural states; Z91.041 Radiographic dye allergy status; Z88.7 Allergy status to serum and vaccine; Z79.82 Long term (current) use of aspirin; Z79.1 Long term (current) use of non-steroidal anti-inflammatories (NSAID); Z79.899 Other long term (current) drug therapy; Z88.2 Allergy status to sulfonamides; Z91.013 Allergy to seafood
CPT/HCPCS: 36415; 74022; 80048; 80076; 81001; 85025; 87086; 99284